=== PATIENT | male | born 1935 | race Caucasian/White ===

== ENCOUNTER 2017-07-23 16:05 | Inpatient (IN) ==
[2017-07-23 20:17] LABS: Alanine Aminotransferase 16 U/L (16-61); Albumin 3.2 G/DL (3.4-5.0); Alkaline Phosphatase 26 U/L (45-117); Aspartate Amino Transferase 11 U/L (0-37); Bilirubin,Total < 0.39 MG/DL (0.2-1.0); Blood Urea Nitrogen 24 MG/DL (7-18); Glucose 136 MG/DL (74-106); Osmolality,Calculated 284.4 MOS/KG (273-304); Potassium 4.2 MMOL/L (3.5-5.1); Sodium 140 MMOL/L (136-145); Total Protein 6.7 G/DL (6.4-8.3)
[2017-07-26 08:10] VITALS: BP 123/78
== END 2017-07-26 11:30 | disposition home or self-care (01) | DRG 309 ==
LOC: N.TELEN 16:50 → INTOOBSV 16:50
PROVIDERS: ADMIT Internal Medicine Cardiovascular Disease; ATTEND Internal Medicine Cardiovascular Disease

== ENCOUNTER 2017-08-22 05:57 | Inpatient (IN) ==
[2017-08-16 11:41] LABS: Basophils # 0.1 10*3/uL (0.0-0.2); Basophils % 0.8 % (0.0-0.8); Eosinophils # 0.5 10*3/uL (0.0-0.87); Eosinophils % 5.4 % (0.00-10.9); Hemoglobin 11.1 GM/DL (14.0-18.0); Immature Granulocytes % 0.4 %; Immature Granulocytes Absolute 0.04 #; Lymphocytes # 2.1 10*3/uL (1.4-4.0); Lymphocytes % 22.5 % (21.2-54.2); Mean Corpuscular HGB Conc 30.8 GM/DL (32-36); Mean Corpuscular Hemoglobin 27 PG (27-34); Mean Corpuscular Volume 86.5 FL (87-102); Mean Platelet Volume 11.5 FL (9.6-12.0); Monocytes # 1.1 10*3/uL (0.11-0.8); Monocytes % 11.7 % (1.7-12.7); Neutrophils # 5.4 10*3/uL (1.4-7.4); Neutrophils % 59.2 % (38.7-73.9); Platelet Count 354 T/CUMM (130-400); Red Blood Count 4.16 MC/CUMM (3.8-5.5); Red Cell Distribution Width 14.9 % (9.3-17.3); White Blood Count 9.2 T/CUMM (4-12)
[2017-08-16 12:00] LABS: Calcium 9.1 MG/DL (8.5-10.1); Osmolality,Calculated 283.3 MOS/KG (273-304); Potassium 4.5 MMOL/L (3.5-5.1)
[~2017-08-22 05:57] MED LIST: ALBUTEROL 2.5 MG/3 ML NEB RESP TX ONE; LACTATED RINGERS 1,000 ML IV SCH; ONDANSETRON 4 MG/2 ML VIAL IV ONE; ceFAZolin 1,000 MG VIAL ONE; ceFAZolin 1,000 MG in SYRINGE 1 EACH IV ONE
[2017-08-22] MEDS ORDERED: ceFAZolin 1,000 MG VIAL ONE (05:58)
[2017-08-22] MEDS ORDERED: ceFAZolin 1,000 MG in SYRINGE 1 EACH IV ONE (06:00)
[2017-08-22] MEDS ORDERED: BACITRACIN 50,000 UNIT VIAL ONE (06:22)
[2017-08-22] MEDS ORDERED: FAMOTIDINE 20 MG TABLET PO ONE (06:51)
[2017-08-22] MEDS ORDERED: ALBUTEROL/IPRATROPIUM 3 ML NEB RESP TX ONE (06:51)
[2017-08-22] MEDS ORDERED: DIAZEPAM 5 MG TABLET ONE (07:00)
[2017-08-22] MEDS ORDERED: LACTATED RINGERS 1,000 ML IV SCH (07:00)
[2017-08-22] MEDS ORDERED: DIAZEPAM 5 MG TABLET PO STA (07:01)
[2017-08-22] MEDS ORDERED: SEVOFLURANE 1 UNIT/15 MINUTE INH ONE (09:47)
[2017-08-22] MEDS ORDERED: PROPOFOL 200 MG/20 ML VIAL IV ONE (09:47)
[2017-08-22] MEDS ORDERED: fentaNYL 100 MCG/2 ML VIAL ONE (09:48)
[2017-08-22] MEDS ORDERED: ACETAMINOPHEN 1,000 MG/100 ML VIAL IV ONE (09:48)
[2017-08-22] MEDS ORDERED: GLYCOPYRROLATE 0.4 MG/2 ML VIAL ONE (09:48)
[2017-08-22] MEDS ORDERED: LACTATED RINGERS 2,000 ML IV ONE (09:49)
[2017-08-22] MEDS ORDERED: PHENYLEPHRINE 1 MG/10 ML SYRINGE IV ONE (09:49)
[2017-08-22] MEDS ORDERED: ROCURONIUM 100 MG/10 ML VIAL IV ONE (09:49)
[2017-08-22 09:55] LABS: Apearance,Urine CLEAR (Clear); Bilirubin,Urine Negative (Negative); Blood, Urine Negative (Negative); Glucose,Urine (UA) Negative (Negative); Ketones,Urine Negative (Negative); Mucus,Urine Occasional /LPF (Occasional); Nitrite,Urine Negative (Negative); Protein,Urine Negative; RBC,Urine <1 /HPF (0-4); Squamous Epithelial Cell,Urine Occasional /HPF (0-10); Urine Color Yellow (Yellow); Urine Specific Gravity 1.009 (1.001-1.035); Urine Urobilinogen < 2.0 EU/DL (0.2-1.0); WBC,Urine <1 /HPF (0-6)
[2017-08-22] MEDS ORDERED: MORPHINE 10 MG/1 ML VIAL ONE (10:03)
[2017-08-22] MEDS ORDERED: ONDANSETRON 4 MG/2 ML VIAL ONE (10:03)
[2017-08-22] MEDS: MORPHINE 10 MG/1 ML VIAL IV PRN ×3 (10:05→10:25)
[2017-08-22] MEDS ORDERED: ONDANSETRON 4 MG/2 ML VIAL IV PRN (10:09)
[2017-08-22] MEDS: LACTATED RINGERS 1,000 ML IV SCH ×2 (11:00→21:17)
[2017-08-22] MEDS: MORPHINE 4 MG/1 ML VIAL IV PRN ×3 (11:35→21:15)
[2017-08-22] MEDS: ONDANSETRON 4 MG/2 ML VIAL IV PRN ×2 (11:35→21:16)
[2017-08-22] MEDS: KETOROLAC 30 MG/1 ML VIAL IV PRN (15:51)
[2017-08-22] MEDS ORDERED: hydrALAZINE 20 MG/1 ML VIAL IV PRN (18:26)
[2017-08-23] MEDS: KETOROLAC 30 MG/1 ML VIAL IV PRN ×4 (00:37→20:30)
[2017-08-23 05:32] LABS: Basophils % 0.2 % (0.0-0.8); Hematocrit 32.8 VOL% (42.0-52.0); Hemoglobin 10.6 GM/DL (14.0-18.0); Immature Granulocytes % 0.5 %; Immature Granulocytes Absolute 0.11 #; Lymphocytes # 1.7 10*3/uL (1.4-4.0); Lymphocytes % 7.8 % (21.2-54.2); Mean Corpuscular HGB Conc 32.3 GM/DL (32-36); Mean Corpuscular Hemoglobin 27 PG (27-34); Mean Corpuscular Volume 83.9 FL (87-102); Mean Platelet Volume 12.2 FL (9.6-12.0); Monocytes # 1.5 10*3/uL (0.11-0.8); Monocytes % 6.8 % (1.7-12.7); NRBC # 0.02 10*3/uL; Neutrophils # 18.2 10*3/uL (1.4-7.4); Neutrophils % 84.7 % (38.7-73.9); Platelet Count 268 T/CUMM (130-400); Red Blood Count 3.91 MC/CUMM (3.8-5.5); Red Cell Distribution Width 16.6 % (9.3-17.3); White Blood Count 21.5 T/CUMM (4-12)
[2017-08-23 06:06] LABS: Calcium 8.1 MG/DL (8.5-10.1); Hypochromasia 1+; Lymphocytes 6 % (20-55); Ovalocytes Slight; Platelet Estimate Adequate; Potassium 4.4 MMOL/L (3.5-5.1); Segmented Neutrophils 92 % (50-85); Total Cells Counted 100; Total Protein 6.6 G/DL (6.4-8.3)
[2017-08-23] MEDS: LEVOFLOXACIN INJ 250 MG in PREMIX 1 EACH IV SCH (10:09)
[2017-08-23] MEDS: PIPERACILLIN/TAZOBACTAM 3,375 MG in SODIUM CHLORIDE 0.9% 100 ML IV SCH ×2 (10:09→17:53)
[2017-08-23] MEDS: MORPHINE 4 MG/1 ML VIAL IV PRN ×3 (10:09→22:47)
[2017-08-23] MEDS: ONDANSETRON 4 MG/2 ML VIAL IV PRN ×2 (13:14→21:15)
[2017-08-23] MEDS: LACTATED RINGERS 1,000 ML IV SCH ×2 (14:26)
[2017-08-24] MEDS: PIPERACILLIN/TAZOBACTAM 3,375 MG in SODIUM CHLORIDE 0.9% 100 ML IV SCH ×3 (01:01→18:13)
[2017-08-24] MEDS: MORPHINE 4 MG/1 ML VIAL IV PRN (02:58)
[2017-08-24 04:42] LABS: Basophils # 0.1 10*3/uL (0.0-0.2); Basophils % 0.2 % (0.0-0.8); Hematocrit 33.7 VOL% (42.0-52.0); Hemoglobin 10.5 GM/DL (14.0-18.0); Immature Granulocytes % 0.8 %; Immature Granulocytes Absolute 0.19 #; Lymphocytes # 1.1 10*3/uL (1.4-4.0); Lymphocytes % 4.9 % (21.2-54.2); Mean Corpuscular HGB Conc 31.2 GM/DL (32-36); Mean Corpuscular Hemoglobin 27 PG (27-34); Mean Corpuscular Volume 86.6 FL (87-102); Mean Platelet Volume 12.4 FL (9.6-12.0); Monocytes % 4.5 % (1.7-12.7); Neutrophils # 20.3 10*3/uL (1.4-7.4); Neutrophils % 89.6 % (38.7-73.9); Platelet Count 251 T/CUMM (130-400); Red Blood Count 3.89 MC/CUMM (3.8-5.5); White Blood Count 22.7 T/CUMM (4-12)
[2017-08-24 05:18] LABS: Calcium 8.2 MG/DL (8.5-10.1); Osmolality,Calculated 287.4 MOS/KG (273-304); Potassium 4.5 MMOL/L (3.5-5.1)
[2017-08-24 05:41] LABS: Band Neutrophils 16 % (0-10); Lymphocytes 4 % (20-55); Segmented Neutrophils 76 % (50-85); Total Cells Counted 100
[2017-08-24 05:42] LABS: Hypochromasia 1+; Microcytosis 1+; Platelet Estimate Normal
[2017-08-24] MEDS: LACTATED RINGERS 1,000 ML IV SCH ×2 (09:30→22:11)
[2017-08-24] MEDS: KETOROLAC 30 MG/1 ML VIAL IV PRN (09:39)
[2017-08-24] MEDS: LEVOFLOXACIN INJ 250 MG in PREMIX 1 EACH IV SCH (09:42)
[2017-08-24] MEDS: SODIUM CHLORIDE 0.45% 1,000 ML IV SCH (16:13)
[2017-08-24] MEDS ORDERED: ALBUTEROL/IPRATROPIUM 3 ML NEB RESP TX ONE (22:44)
[2017-08-25] MEDS: PIPERACILLIN/TAZOBACTAM 3,375 MG in SODIUM CHLORIDE 0.9% 100 ML IV SCH ×3 (01:52→21:31)
[2017-08-25] MEDS: SODIUM CHLORIDE 0.45% 1,000 ML IV SCH ×4 (01:55→19:42)
[2017-08-25 05:08] LABS: Basophils % 0.2 % (0.0-0.8); Eosinophils # 0.7 10*3/uL (0.0-0.87); Hematocrit 31.6 VOL% (42.0-52.0); Hemoglobin 9.6 GM/DL (14.0-18.0); Immature Granulocytes % 1.2 %; Immature Granulocytes Absolute 0.17 #; Lymphocytes # 1.4 10*3/uL (1.4-4.0); Lymphocytes % 9.9 % (21.2-54.2); Mean Corpuscular HGB Conc 30.4 GM/DL (32-36); Mean Corpuscular Hemoglobin 27 PG (27-34); Mean Corpuscular Volume 87.3 FL (87-102); Mean Platelet Volume 12.5 FL (9.6-12.0); Monocytes # 0.9 10*3/uL (0.11-0.8); Monocytes % 6.3 % (1.7-12.7); Neutrophils # 10.6 10*3/uL (1.4-7.4); Neutrophils % 77.4 % (38.7-73.9); Platelet Count 236 T/CUMM (130-400); Red Blood Count 3.62 MC/CUMM (3.8-5.5); Red Cell Distribution Width 16.9 % (9.3-17.3); White Blood Count 13.6 T/CUMM (4-12)
[2017-08-25 05:34] LABS: Calcium 7.9 MG/DL (8.5-10.1); Osmolality,Calculated 282.1 MOS/KG (273-304); Potassium 3.9 MMOL/L (3.5-5.1)
[2017-08-25 06:02] LABS: Band Neutrophils 10 % (0-10); Eosinophils 1 % (0-10); Hypochromasia 1+; Lymphocytes 12 % (20-55); Microcytosis 1+; Segmented Neutrophils 73 % (50-85); Total Cells Counted 100
[2017-08-25 06:03] LABS: Ovalocytes Slight
[2017-08-25] MEDS: ALBUTEROL/IPRATROPIUM 3 ML NEB RESP TX SCH ×3 (07:03→20:25)
[2017-08-25 07:11] LABS: ABG Base Excess -4.2 MMOL/L (-2.5-2.5); ABG HCO3 20.9 MMOL/L (20-26); ABG Oxygen Saturation 94.2 % (95-100); ABG PCO2 36.3 MM HG (35-48); ABG PH 7.364 (7.35-7.45); ABG PO2 74.1 MM HG (80-95); ABG TCO2 19.1 MMOL/L (23-27)
[2017-08-25] MEDS: LEVOFLOXACIN INJ 250 MG in PREMIX 1 EACH IV SCH (09:40)
[2017-08-25] MEDS ORDERED: LACTULOSE 20 GM/30 ML UDCUP PO PRN (16:06)
[2017-08-25] MEDS ORDERED: BISACODYL 10 MG SUPP RECTAL ONE (16:07)
[2017-08-25] MEDS: MORPHINE 4 MG/1 ML VIAL IV PRN (16:28)
[2017-08-25] MEDS: NEBIVOLOL 5 MG TABLET PO SCH (16:41)
[2017-08-25] MEDS: DOCUSATE SODIUM 100 MG CAPSULE PO SCH (21:31)
[2017-08-26] MEDS: ALBUTEROL/IPRATROPIUM 3 ML NEB RESP TX SCH ×4 (00:29→20:14)
[2017-08-26] MEDS ORDERED: NITROGLYCERIN SL 0.4 MG TABLET SL ONE (02:46)
[2017-08-26] MEDS ORDERED: ASPIRIN 325 MG TABLET ONE ×2 (02:51→02:52)
[2017-08-26] MEDS ORDERED: ASPIRIN CHEW 81 MG TABLET PO ONE ×2 (02:54→02:57)
[2017-08-26] MEDS ORDERED: NITROGLYCERIN SL 0.4 MG TABLET SL PRN (02:57)
[2017-08-26] MEDS ORDERED: MORPHINE 4 MG/1 ML VIAL IV PRN (02:57)
[2017-08-26 03:07] LABS: Basophils # 0.1 10*3/uL (0.0-0.2); Basophils % 0.3 % (0.0-0.8); Eosinophils # 0.9 10*3/uL (0.0-0.87); Eosinophils % 5.9 % (0.00-10.9); Hematocrit 33.3 VOL% (42.0-52.0); Hemoglobin 10.6 GM/DL (14.0-18.0); Immature Granulocytes % 2.5 %; Immature Granulocytes Absolute 0.39 #; Lymphocytes # 1.8 10*3/uL (1.4-4.0); Lymphocytes % 11.6 % (21.2-54.2); Mean Corpuscular HGB Conc 31.8 GM/DL (32-36); Mean Corpuscular Hemoglobin 27 PG (27-34); Mean Corpuscular Volume 84.5 FL (87-102); Mean Platelet Volume 12.1 FL (9.6-12.0); Monocytes # 1.8 10*3/uL (0.11-0.8); Monocytes % 11.8 % (1.7-12.7); Neutrophils # 10.4 10*3/uL (1.4-7.4); Neutrophils % 67.9 % (38.7-73.9); Platelet Count 286 T/CUMM (130-400); Red Blood Count 3.94 MC/CUMM (3.8-5.5); Red Cell Distribution Width 16.8 % (9.3-17.3); White Blood Count 15.3 T/CUMM (4-12)
[2017-08-26 03:39] LABS: Band Neutrophils 2 % (0-10); Eosinophils 6 % (0-10); Lymphocytes 16 % (20-55); Segmented Neutrophils 67 % (50-85)
[2017-08-26 03:40] LABS: Hypochromasia Slight; Polychromasia Few
[2017-08-26 03:41] LABS: Anisocytosis 1+; Giant Platelets Few; Microcytosis 1+; Platelet Estimate Normal
[2017-08-26 03:42] LABS: Total Cells Counted 100
[2017-08-26 03:45] LABS: Calcium 8.2 MG/DL (8.5-10.1); Osmolality,Calculated 277.4 MOS/KG (273-304); Potassium 3.8 MMOL/L (3.5-5.1)
[2017-08-26] MEDS: PIPERACILLIN/TAZOBACTAM 3,375 MG in SODIUM CHLORIDE 0.9% 100 ML IV SCH ×3 (05:02→21:42)
[2017-08-26] MEDS: SODIUM CHLORIDE 0.45% 1,000 ML IV SCH ×3 (05:20→13:17)
[2017-08-26 05:54] LABS: Albumin 1.9 G/DL (3.4-5.0); Bilirubin,Total 1.1 MG/DL (0.2-1.0); Calcium 7.8 MG/DL (8.5-10.1); Osmolality,Calculated 276.5 MOS/KG (273-304); Potassium 3.8 MMOL/L (3.5-5.1); Total Protein 5.9 G/DL (6.4-8.3)
[2017-08-26 05:58] LABS: Troponin I Only 0.075 NG/ML (0.00-0.045)
[2017-08-26] MEDS: LEVOFLOXACIN INJ 250 MG in PREMIX 1 EACH IV SCH (08:57)
[2017-08-26] MEDS: NEBIVOLOL 5 MG TABLET PO SCH (08:57)
[2017-08-26] MEDS: DOCUSATE SODIUM 100 MG CAPSULE PO SCH ×2 (08:57→20:50)
[2017-08-26] MEDS: MORPHINE 4 MG/1 ML VIAL IV PRN ×4 (10:39→21:54)
[2017-08-26 11:27] LABS: Troponin I Only 0.057 NG/ML (0.00-0.045)
[2017-08-26] MEDS ORDERED: FUROSEMIDE 40 MG/4 ML VIAL IV ONE (11:39)
[2017-08-26] MEDS ORDERED: NEOSTIGMINE 10 MG/10 ML VIAL IV ONE ×2 (11:39→13:00)
[2017-08-26] MEDS: MEROPENEM 1,000 MG in SYRINGE 1 EACH IV SCH (12:22)
[2017-08-26] MEDS ORDERED: FLUCONAZOLE 150 MG TABLET PO ONE (15:45)
[2017-08-26] MEDS: NYSTATIN CREAM 15 GM TUBE TOP SCH (21:42)
[2017-08-27] MEDS: ALBUTEROL/IPRATROPIUM 3 ML NEB RESP TX SCH ×4 (00:33→19:20)
[2017-08-27] MEDS: MEROPENEM 1,000 MG in SYRINGE 1 EACH IV SCH ×2 (00:39→12:45)
[2017-08-27] MEDS: MORPHINE 4 MG/1 ML VIAL IV PRN ×3 (00:48→09:00)
[2017-08-27] MEDS: PIPERACILLIN/TAZOBACTAM 3,375 MG in SODIUM CHLORIDE 0.9% 100 ML IV SCH ×3 (05:07→21:40)
[2017-08-27] MEDS: NEBIVOLOL 5 MG TABLET PO SCH (08:53)
[2017-08-27] MEDS: NYSTATIN CREAM 15 GM TUBE TOP SCH ×2 (08:53→21:41)
[2017-08-27] MEDS: DOCUSATE SODIUM 100 MG CAPSULE PO SCH ×2 (08:53→21:41)
[2017-08-27 10:06] LABS: Basophils # 0.1 10*3/uL (0.0-0.2); Basophils % 0.6 % (0.0-0.8); Eosinophils # 0.5 10*3/uL (0.0-0.87); Hematocrit 33.4 VOL% (42.0-52.0); Hemoglobin 10.5 GM/DL (14.0-18.0); Immature Granulocytes % 9.3 %; Immature Granulocytes Absolute 1.17 #; Lymphocytes # 1.6 10*3/uL (1.4-4.0); Lymphocytes % 12.4 % (21.2-54.2); Mean Corpuscular HGB Conc 31.4 GM/DL (32-36); Mean Corpuscular Hemoglobin 26 PG (27-34); Mean Corpuscular Volume 84.1 FL (87-102); Mean Platelet Volume 11.9 FL (9.6-12.0); Monocytes # 2.1 10*3/uL (0.11-0.8); Monocytes % 16.6 % (1.7-12.7); NRBC # 0.02 10*3/uL; Neutrophils # 7.2 10*3/uL (1.4-7.4); Neutrophils % 57.1 % (38.7-73.9); Platelet Count 284 T/CUMM (130-400); Red Blood Count 3.97 MC/CUMM (3.8-5.5); Red Cell Distribution Width 17.3 % (9.3-17.3); White Blood Count 12.5 T/CUMM (4-12)
[2017-08-27 10:20] LABS: Calcium 8.3 MG/DL (8.5-10.1); Osmolality,Calculated 279.1 MOS/KG (273-304); Potassium 3.9 MMOL/L (3.5-5.1)
[2017-08-27 10:27] LABS: Band Neutrophils 8 % (0-10); Eosinophils 4 % (0-10); Lymphocytes 13 % (20-55); Metamyelocytes 1 %; Segmented Neutrophils 54 % (50-85); Total Cells Counted 100
[2017-08-27 10:28] LABS: Hypochromasia 1+; Microcytosis 1+
[2017-08-27 10:29] LABS: Platelet Estimate Normal
[2017-08-27] MEDS: DEXTROSE 5% NACL 0.45% 1,000 ML IV SCH (12:45)
[2017-08-27] MEDS ORDERED: ACETAMINOPHEN INJ 1,000 MG in PREMIX 1 EACH IV SCH (14:30)
[2017-08-27] MEDS: NEOSTIGMINE 10 MG/10 ML VIAL IV SCH ×2 (16:06→21:41)
[2017-08-27] MEDS: FAT EMULSION 20% 250 ML IV SCH (16:06)
[2017-08-27] MEDS ORDERED: DEXTROSE 10% 1,000 ML IV PRN (17:00)
[2017-08-27] MEDS: MULTIVITAMIN INJ 10 ML in AMINO ACIDS/DEXT/LYTES 4.25-5% 2,000 ML IV SCH (18:38)
[2017-08-27] MEDS: KETOROLAC 30 MG/1 ML VIAL IV PRN (21:40)
[2017-08-28] MEDS: ALBUTEROL/IPRATROPIUM 3 ML NEB RESP TX SCH ×4 (00:25→19:51)
[2017-08-28] MEDS: MEROPENEM 1,000 MG in SYRINGE 1 EACH IV SCH ×2 (01:47→12:56)
[2017-08-28] MEDS: NEOSTIGMINE 10 MG/10 ML VIAL IV SCH ×4 (01:47→22:08)
[2017-08-28] MEDS: KETOROLAC 30 MG/1 ML VIAL IV PRN ×2 (03:35→15:06)
[2017-08-28] MEDS: PIPERACILLIN/TAZOBACTAM 3,375 MG in SODIUM CHLORIDE 0.9% 100 ML IV SCH ×3 (04:11→22:07)
[2017-08-28 05:30] LABS: Basophils # 0.1 10*3/uL (0.0-0.2); Basophils % 0.5 % (0.0-0.8); Eosinophils # 0.3 10*3/uL (0.0-0.87); Eosinophils % 1.7 % (0.00-10.9); Hematocrit 29.8 VOL% (42.0-52.0); Hemoglobin 9.4 GM/DL (14.0-18.0); Immature Granulocytes % 13.9 %; Lymphocytes # 1.2 10*3/uL (1.4-4.0); Lymphocytes % 7.7 % (21.2-54.2); Mean Corpuscular HGB Conc 31.5 GM/DL (32-36); Mean Corpuscular Hemoglobin 26 PG (27-34); Mean Platelet Volume 11.5 FL (9.6-12.0); Monocytes # 1.6 10*3/uL (0.11-0.8); Monocytes % 10.7 % (1.7-12.7); NRBC # 0.03 10*3/uL; Neutrophils # 9.9 10*3/uL (1.4-7.4); Neutrophils % 65.5 % (38.7-73.9); Platelet Count 315 T/CUMM (130-400); Red Blood Count 3.59 MC/CUMM (3.8-5.5); Red Cell Distribution Width 17.2 % (9.3-17.3); White Blood Count 15.1 T/CUMM (4-12)
[2017-08-28] MEDS: LEVOTHYROXINE 100 MCG TABLET PO SCH (05:50)
[2017-08-28 05:51] LABS: Calcium 7.9 MG/DL (8.5-10.1); Osmolality,Calculated 276.4 MOS/KG (273-304); Potassium 3.5 MMOL/L (3.5-5.1)
[2017-08-28 05:54] LABS: Atypical Lymphocytes Few; Band Neutrophils 17 % (0-10); Eosinophils 1 % (0-10); Lymphocytes 16 % (20-55); Metamyelocytes 1 %; Myelocytes 1 %; Segmented Neutrophils 54 % (50-85); Total Cells Counted 100
[2017-08-28 05:55] LABS: Hypochromasia 1+; Microcytosis 1+; Platelet Estimate Normal
[2017-08-28 06:05] LABS: Prealbumin 3.2 MG/DL (20-40)
[2017-08-28] MEDS ORDERED: FUROSEMIDE 40 MG/4 ML VIAL IV ONE (07:33)
[2017-08-28] MEDS: NEBIVOLOL 5 MG TABLET PO SCH (10:15)
[2017-08-28] MEDS: DOCUSATE SODIUM 100 MG CAPSULE PO SCH ×2 (10:16→22:08)
[2017-08-28] MEDS: clonazePAM 0.5 MG TABLET PO PRN (10:17)
[2017-08-28] MEDS: CITALOPRAM 20 MG TABLET PO SCH (10:17)
[2017-08-28] MEDS: TAMSULOSIN 0.4 MG CAPSULE PO SCH (10:17)
[2017-08-28] MEDS ORDERED: TEMAZEPAM 15 MG CAPSULE PO PRN (10:41)
[2017-08-28] MEDS: NYSTATIN CREAM 15 GM TUBE TOP SCH ×2 (11:18→22:08)
[2017-08-28] MEDS ORDERED: POTASSIUM CHLORIDE 20 MEQ/15 ML UDCUP PO ONE (12:02)
[2017-08-28] MEDS: DEXTROSE 5% NACL 0.45% 1,000 ML IV SCH (14:23)
[2017-08-28] MEDS: FAT EMULSION 20% 250 ML IV SCH (15:14)
[2017-08-28] MEDS: MULTIVITAMIN INJ 10 ML in AMINO ACIDS/DEXT/LYTES 4.25-5% 2,000 ML IV SCH (17:25)
[2017-08-28] MEDS ORDERED: DEXTROSE 5% NACL 0.45% 1,000 ML IV SCH (17:45)
[2017-08-29] MEDS: MEROPENEM 1,000 MG in SYRINGE 1 EACH IV SCH ×2 (00:56→12:19)
[2017-08-29] MEDS: ALBUTEROL/IPRATROPIUM 3 ML NEB RESP TX SCH ×4 (01:09→19:00)
[2017-08-29] MEDS: NEOSTIGMINE 10 MG/10 ML VIAL IV SCH ×2 (03:16→08:39)
[2017-08-29] MEDS: DEXTROSE 5% NACL 0.45% 1,000 ML IV SCH ×2 (04:49→05:31)
[2017-08-29] MEDS: PIPERACILLIN/TAZOBACTAM 3,375 MG in SODIUM CHLORIDE 0.9% 100 ML IV SCH ×3 (05:30→22:45)
[2017-08-29] MEDS: LEVOTHYROXINE 100 MCG TABLET PO SCH (05:31)
[2017-08-29 06:59] LABS: Basophils # 0.1 10*3/uL (0.0-0.2); Basophils % 0.2 % (0.0-0.8); Eosinophils # 0.5 10*3/uL (0.0-0.87); Eosinophils % 1.7 % (0.00-10.9); Hematocrit 31.3 VOL% (42.0-52.0); Immature Granulocytes Absolute 4.09 #; Lymphocytes # 1.5 10*3/uL (1.4-4.0); Lymphocytes % 5.2 % (21.2-54.2); Mean Corpuscular HGB Conc 31.9 GM/DL (32-36); Mean Corpuscular Hemoglobin 27 PG (27-34); Mean Corpuscular Volume 83.9 FL (87-102); Monocytes # 1.8 10*3/uL (0.11-0.8); Monocytes % 6.3 % (1.7-12.7); NRBC # 0.11 10*3/uL; Neutrophils # 21.2 10*3/uL (1.4-7.4); Neutrophils % 72.6 % (38.7-73.9); Platelet Count 307 T/CUMM (130-400); Red Blood Count 3.73 MC/CUMM (3.8-5.5); White Blood Count 29.2 T/CUMM (4-12)
[2017-08-29 07:19] LABS: Calcium 8.3 MG/DL (8.5-10.1); Osmolality,Calculated 278.5 MOS/KG (273-304); Potassium 3.7 MMOL/L (3.5-5.1)
[2017-08-29 07:22] LABS: Band Neutrophils 34 % (0-10); Hypochromasia 1+; Lymphocytes 5 % (20-55); Macrocytosis 1+; Metamyelocytes 2 %; Myelocytes 6 %; Nucleated Red Blood Cells 1 (0-5); Platelet Estimate Adequate; Polychromasia Slight; Segmented Neutrophils 48 % (50-85); Total Cells Counted 100
[2017-08-29] MEDS: KETOROLAC 30 MG/1 ML VIAL IV PRN (08:37)
[2017-08-29] MEDS: NEBIVOLOL 10 MG TABLET PO SCH (08:37)
[2017-08-29] MEDS: DOCUSATE SODIUM 100 MG CAPSULE PO SCH ×2 (08:37→22:35)
[2017-08-29] MEDS: CITALOPRAM 20 MG TABLET PO SCH (08:38)
[2017-08-29] MEDS: TAMSULOSIN 0.4 MG CAPSULE PO SCH (08:46)
[2017-08-29] MEDS: NYSTATIN CREAM 15 GM TUBE TOP SCH ×2 (08:46→22:46)
[2017-08-29] MEDS: CLINDAMYCIN INJ 300 MG in PREMIX 1 EACH IV SCH ×2 (12:19→18:24)
[2017-08-29] MEDS: clonazePAM 0.5 MG TABLET PO PRN (16:59)
[2017-08-29] MEDS: FAT EMULSION 20% 250 ML IV SCH (16:59)
[2017-08-29] MEDS: MULTIVITAMIN INJ 10 ML in AMINO ACIDS/DEXT/LYTES 4.25-5% 2,000 ML IV SCH (18:22)
[2017-08-29] MEDS ORDERED: LACTATED RINGERS 500 ML IV ONE (19:00)
[2017-08-29 20:58] LABS: ABG Base Excess -5.2 MMOL/L (-2.5-2.5); ABG HCO3 20.1 MMOL/L (20-26); ABG Oxygen Saturation 97.3 % (95-100); ABG PCO2 33.2 MM HG (35-48); ABG PH 7.373 (7.35-7.45); ABG PO2 99.4 MM HG (80-95); ABG TCO2 17.9 MMOL/L (23-27)
[2017-08-30] MEDS: ALBUTEROL/IPRATROPIUM 3 ML NEB RESP TX SCH ×5 (00:32→19:26)
[2017-08-30] MEDS: MEROPENEM 1,000 MG in SYRINGE 1 EACH IV SCH ×3 (03:55→23:30)
[2017-08-30] MEDS: CLINDAMYCIN INJ 300 MG in PREMIX 1 EACH IV SCH ×3 (04:53→22:19)
[2017-08-30 06:23] LABS: Basophils # 0.1 10*3/uL (0.0-0.2); Basophils % 0.1 % (0.0-0.8); Eosinophils # 0.8 10*3/uL (0.0-0.87); Eosinophils % 2.4 % (0.00-10.9); Hematocrit 31.8 VOL% (42.0-52.0); Hemoglobin 10.5 GM/DL (14.0-18.0); Immature Granulocytes % 15.6 %; Immature Granulocytes Absolute 5.33 #; Lymphocytes # 1.9 10*3/uL (1.4-4.0); Lymphocytes % 5.7 % (21.2-54.2); Mean Corpuscular Hemoglobin 27 PG (27-34); Mean Corpuscular Volume 81.7 FL (87-102); Mean Platelet Volume 12.1 FL (9.6-12.0); Monocytes # 2.2 10*3/uL (0.11-0.8); Monocytes % 6.5 % (1.7-12.7); NRBC # 0.14 10*3/uL; Neutrophils # 23.8 10*3/uL (1.4-7.4); Neutrophils % 69.7 % (38.7-73.9); Platelet Count 330 T/CUMM (130-400); Red Blood Count 3.89 MC/CUMM (3.8-5.5); White Blood Count 34.1 T/CUMM (4-12)
[2017-08-30] MEDS: LEVOTHYROXINE 100 MCG TABLET PO SCH (07:12)
[2017-08-30] MEDS: PIPERACILLIN/TAZOBACTAM 3,375 MG in SODIUM CHLORIDE 0.9% 100 ML IV SCH ×3 (07:14→23:05)
[2017-08-30 07:31] LABS: Band Neutrophils 4 % (0-10); Eosinophils 2 % (0-10); Lymphocytes 13 % (20-55); Nucleated Red Blood Cells 1 (0-5); Platelet Estimate Normal; Segmented Neutrophils 76 % (50-85); Total Cells Counted 100
[2017-08-30 07:34] LABS: Calcium 8.4 MG/DL (8.5-10.1); Osmolality,Calculated 278.7 MOS/KG (273-304); Potassium 3.6 MMOL/L (3.5-5.1)
[2017-08-30] MEDS: NEBIVOLOL 10 MG TABLET PO SCH (09:24)
[2017-08-30] MEDS: TAMSULOSIN 0.4 MG CAPSULE PO SCH (09:25)
[2017-08-30] MEDS: CITALOPRAM 20 MG TABLET PO SCH (09:25)
[2017-08-30] MEDS: DOCUSATE SODIUM 100 MG CAPSULE PO SCH ×2 (09:26→22:16)
[2017-08-30] MEDS: DEXTROSE 5% NACL 0.45% 1,000 ML IV SCH (10:08)
[2017-08-30] MEDS: NYSTATIN CREAM 15 GM TUBE TOP SCH ×2 (10:15→22:16)
[2017-08-30] MEDS: DEXTROSE 5% NACL 0.9% 1,000 ML IV SCH (10:19)
[2017-08-30 13:01] LABS: Apearance,Urine CLOUDY (Clear); Bacteria,Urine Occasional /HPF (Few); Bilirubin,Urine Negative (Negative); Blood, Urine Large mg/dL (Negative); Glucose,Urine (UA) Negative (Negative); Ketones,Urine Negative (Negative); Mucus,Urine Occasional /LPF (Occasional); Nitrite,Urine Negative (Negative); Protein,Urine 100 MG/DL; RBC,Urine 1095 /HPF (0-4); Squamous Epithelial Cell,Urine Occasional /HPF (0-10); Urine Specific Gravity 1.013 (1.001-1.035); Urine Urobilinogen < 2.0 EU/DL (0.2-1.0); WBC,Urine 94 /HPF (0-6)
[2017-08-30 13:03] LABS: Urine Color Reddish-Yellow (Yellow)
[2017-08-30] MEDS ORDERED: LORazepam 2 MG/1 ML VIAL IV PRN (14:18)
[2017-08-30 14:46] LABS: ABG Base Excess -5.2 MMOL/L (-2.5-2.5); ABG HCO3 20.1 MMOL/L (20-26); ABG Oxygen Saturation 96.9 % (95-100); ABG PCO2 29.3 MM HG (35-48); ABG PO2 90.7 MM HG (80-95); ABG TCO2 17.1 MMOL/L (23-27)
[2017-08-30] MEDS: FAT EMULSION 20% 250 ML IV SCH (15:48)
[2017-08-30] MEDS: MULTIVITAMIN INJ 10 ML in AMINO ACIDS/DEXT/LYTES 4.25-5% 2,000 ML IV SCH (18:54)
[2017-08-30 20:40] LABS: Troponin I Only 0.063 NG/ML (0.00-0.045)
[2017-08-30] MEDS: FLUCONAZOLE INJ 200 MG in PREMIX 1 EACH IV SCH (22:15)
[2017-08-30] MEDS: ALBUTEROL/IPRATROPIUM 3 ML NEB RESP TX PRN (23:11)
[2017-08-31 05:40] LABS: Basophils # 0.1 10*3/uL (0.0-0.2); Basophils % 0.5 % (0.0-0.8); Eosinophils # 0.4 10*3/uL (0.0-0.87); Eosinophils % 1.9 % (0.00-10.9); Hematocrit 26.3 VOL% (42.0-52.0); Hemoglobin 8.5 GM/DL (14.0-18.0); Immature Granulocytes % 14.6 %; Lymphocytes # 1.9 10*3/uL (1.4-4.0); Lymphocytes % 8.4 % (21.2-54.2); Mean Corpuscular HGB Conc 32.3 GM/DL (32-36); Mean Corpuscular Hemoglobin 26 PG (27-34); Mean Corpuscular Volume 81.4 FL (87-102); Mean Platelet Volume 11.2 FL (9.6-12.0); Monocytes # 2.2 10*3/uL (0.11-0.8); Monocytes % 9.8 % (1.7-12.7); NRBC # 0.04 10*3/uL; Neutrophils # 14.7 10*3/uL (1.4-7.4); Neutrophils % 64.8 % (38.7-73.9); Platelet Count 385 T/CUMM (130-400); Red Blood Count 3.23 MC/CUMM (3.8-5.5); Red Cell Distribution Width 17.7 % (9.3-17.3); White Blood Count 22.7 T/CUMM (4-12)
[2017-08-31] MEDS: CLINDAMYCIN INJ 300 MG in PREMIX 1 EACH IV SCH ×3 (05:55→22:10)
[2017-08-31] MEDS: PIPERACILLIN/TAZOBACTAM 3,375 MG in SODIUM CHLORIDE 0.9% 100 ML IV SCH ×3 (05:55→23:20)
[2017-08-31 05:59] LABS: Albumin 1.5 G/DL (3.4-5.0); Bilirubin,Total 0.4 MG/DL (0.2-1.0); Osmolality,Calculated 280.7 MOS/KG (273-304); Total Protein 6.3 G/DL (6.4-8.3)
[2017-08-31] MEDS: ALBUTEROL/IPRATROPIUM 3 ML NEB RESP TX SCH ×4 (07:17→19:17)
[2017-08-31] MEDS: LEVOTHYROXINE 100 MCG TABLET PO SCH (07:18)
[2017-08-31] MEDS: DEXTROSE 5% NACL 0.9% 1,000 ML IV SCH (07:18)
[2017-08-31 07:54] LABS: Band Neutrophils 1 % (0-10); Eosinophils 1 % (0-10); Hypochromasia 2+; Lymphocytes 10 % (20-55); Myelocytes 6 %; Nucleated Red Blood Cells 1 (0-5); Platelet Estimate Adequate; Segmented Neutrophils 74 % (50-85); Total Cells Counted 100
[2017-08-31] MEDS ORDERED: SODIUM CHLORIDE 0.9% 1,000 ML IV PRN (11:02)
[2017-08-31 11:29] LABS: Basophils # 0.1 10*3/uL (0.0-0.2); Basophils % 0.4 % (0.0-0.8); Eosinophils # 0.4 10*3/uL (0.0-0.87); Eosinophils % 2.2 % (0.00-10.9); Hematocrit 24.4 VOL% (42.0-52.0); Immature Granulocytes % 18.5 %; Immature Granulocytes Absolute 3.66 #; Lymphocytes # 2.9 10*3/uL (1.4-4.0); Lymphocytes % 14.4 % (21.2-54.2); Mean Corpuscular HGB Conc 32.8 GM/DL (32-36); Mean Corpuscular Hemoglobin 27 PG (27-34); Mean Corpuscular Volume 81.1 FL (87-102); Mean Platelet Volume 11.6 FL (9.6-12.0); Monocytes # 2.5 10*3/uL (0.11-0.8); Monocytes % 12.5 % (1.7-12.7); NRBC # 0.03 10*3/uL; Neutrophils # 10.3 10*3/uL (1.4-7.4); Platelet Count 367 T/CUMM (130-400); Red Blood Count 3.01 MC/CUMM (3.8-5.5); Red Cell Distribution Width 18.1 % (9.3-17.3); White Blood Count 19.8 T/CUMM (4-12)
[2017-08-31] MEDS ORDERED: PHENYLEPHRINE DRIP 40 MG/250 ML PREMIX IV PRN (13:06)
[2017-08-31] MEDS ORDERED: LIDOCAINE 2% TOP JELLY 5 ML TUBE TOP ONE (13:12)
[2017-08-31] MEDS ORDERED: SEVOFLURANE 1 UNIT/15 MINUTE INH ONE (13:12)
[2017-08-31] MEDS ORDERED: PHENYLEPHRINE 1 MG/10 ML SYRINGE IV ONE (13:13)
[2017-08-31] MEDS ORDERED: ETOMIDATE 40 MG/20 ML VIAL IV ONE (13:13)
[2017-08-31] MEDS ORDERED: PHENYLEPHRINE 10 MG/1 ML VIAL IV ONE ×2 (13:13)
[2017-08-31] MEDS ORDERED: PHENYLEPHRINE 0.5% NASAL SPRAY 15 ML BOTTLE BOTH NARES ONE (13:13)
[2017-08-31] MEDS ORDERED: fentaNYL 100 MCG/2 ML VIAL ONE (13:13)
[2017-08-31] MEDS ORDERED: ROCURONIUM 100 MG/10 ML VIAL IV ONE (13:14)
[2017-08-31] MEDS ORDERED: SODIUM CHLORIDE 0.9% 250 ML IV ONE (13:14)
[2017-08-31] MEDS ORDERED: SODIUM CHLORIDE 0.9% 1,000 ML IV ONE (13:14)
[2017-08-31] MEDS: PROPOFOL 1,000 MG/100 ML BOTTLE IV SCH ×2 (13:20→22:15)
[2017-08-31 13:40] LABS: ABG Base Excess -8.3 MMOL/L (-2.5-2.5); ABG HCO3 17.7 MMOL/L (20-26); ABG Oxygen Saturation 98.7 % (95-100); ABG PCO2 36.2 MM HG (35-48); ABG PH 7.294 (7.35-7.45); ABG TCO2 16.4 MMOL/L (23-27); Allen Test Positive; Pt O2 Delivery Device Ventilator
[2017-08-31] MEDS: CITALOPRAM 20 MG TABLET PO SCH (15:21)
[2017-08-31] MEDS: NEBIVOLOL 10 MG TABLET PO SCH (15:21)
[2017-08-31] MEDS: DOCUSATE SODIUM 100 MG CAPSULE PO SCH ×2 (15:21→21:30)
[2017-08-31] MEDS: TAMSULOSIN 0.4 MG CAPSULE PO SCH (15:21)
[2017-08-31] MEDS: NYSTATIN CREAM 15 GM TUBE TOP SCH ×2 (15:22→22:10)
[2017-08-31] MEDS: MEROPENEM 1,000 MG in SYRINGE 1 EACH IV SCH (15:23)
[2017-08-31] MEDS: SODIUM CHLORIDE 0.9% 1,000 ML IV SCH (17:38)
[2017-08-31] MEDS: MULTIVITAMIN INJ 10 ML in AMINO ACIDS/DEXT/LYTES 4.25-5% 2,000 ML IV SCH (17:57)
[2017-08-31] MEDS: FAT EMULSION 20% 250 ML IV SCH (17:57)
[2017-08-31] MEDS: MORPHINE 4 MG/1 ML VIAL IV PRN (20:20)
[2017-08-31] MEDS: FLUCONAZOLE INJ 200 MG in PREMIX 1 EACH IV SCH (20:55)
[2017-09-01] MEDS: MEROPENEM 1,000 MG in SYRINGE 1 EACH IV SCH ×2 (00:40→13:13)
[2017-09-01 01:10] LABS: Hematocrit 32.5 VOL% (42.0-52.0); Hemoglobin 10.7 GM/DL (14.0-18.0)
[2017-09-01] MEDS: PROPOFOL 1,000 MG/100 ML BOTTLE IV SCH ×7 (02:10→22:13)
[2017-09-01] MEDS: SODIUM CHLORIDE 0.9% 1,000 ML IV SCH ×3 (04:45→22:07)
[2017-09-01 04:53] LABS: ABG Base Excess -5.9 MMOL/L (-2.5-2.5); ABG HCO3 16.8 MMOL/L (20-26); ABG Oxygen Saturation 98.7 % (95-100); ABG PCO2 25.3 MM HG (35-48); ABG PO2 172.6 MM HG (80-95); ABG TCO2 17.6 MMOL/L (23-27); Allen Test Positive; Pt O2 Delivery Device Ventilator
[2017-09-01] MEDS: CLINDAMYCIN INJ 300 MG in PREMIX 1 EACH IV SCH ×3 (04:54→21:16)
[2017-09-01 05:15] LABS: Basophils # 0.2 10*3/uL (0.0-0.2); Basophils % 0.6 % (0.0-0.8); Eosinophils # 0.1 10*3/uL (0.0-0.87); Eosinophils % 0.3 % (0.00-10.9); Hematocrit 31.7 VOL% (42.0-52.0); Hemoglobin 10.6 GM/DL (14.0-18.0); Immature Granulocytes % 15.3 %; Immature Granulocytes Absolute 4.51 #; Lymphocytes # 1.7 10*3/uL (1.4-4.0); Lymphocytes % 5.7 % (21.2-54.2); Mean Corpuscular HGB Conc 33.4 GM/DL (32-36); Mean Corpuscular Hemoglobin 27 PG (27-34); Mean Corpuscular Volume 81.3 FL (87-102); Mean Platelet Volume 11.2 FL (9.6-12.0); Monocytes # 2.1 10*3/uL (0.11-0.8); NRBC # 0.03 10*3/uL; Neutrophils % 71.1 % (38.7-73.9); Platelet Count 405 T/CUMM (130-400); Red Cell Distribution Width 17.5 % (9.3-17.3); White Blood Count 29.5 T/CUMM (4-12)
[2017-09-01 05:36] LABS: Albumin 1.4 G/DL (3.4-5.0); Bilirubin,Total 0.7 MG/DL (0.2-1.0); Calcium 7.7 MG/DL (8.5-10.1); Osmolality,Calculated 280.7 MOS/KG (273-304); Potassium 4.7 MMOL/L (3.5-5.1); Total Protein 5.8 G/DL (6.4-8.3)
[2017-09-01 05:40] LABS: Atypical Lymphocytes Few; Band Neutrophils 3 % (0-10); Lymphocytes 20 % (20-55); Platelet Estimate Normal; Segmented Neutrophils 66 % (50-85); Total Cells Counted 100
[2017-09-01] MEDS: PIPERACILLIN/TAZOBACTAM 3,375 MG in SODIUM CHLORIDE 0.9% 100 ML IV SCH ×3 (05:40→21:16)
[2017-09-01] MEDS: ALBUTEROL/IPRATROPIUM 3 ML NEB RESP TX SCH ×4 (07:03→19:31)
[2017-09-01] MEDS: LEVOTHYROXINE 100 MCG TABLET PO SCH (07:55)
[2017-09-01] MEDS: DOCUSATE SODIUM 100 MG CAPSULE PO SCH ×2 (11:00→21:19)
[2017-09-01] MEDS: NYSTATIN CREAM 15 GM TUBE TOP SCH ×2 (11:00→21:23)
[2017-09-01] MEDS: TAMSULOSIN 0.4 MG CAPSULE PO SCH (11:00)
[2017-09-01] MEDS: CITALOPRAM 20 MG TABLET PO SCH (11:00)
[2017-09-01] MEDS: NEBIVOLOL 10 MG TABLET PO SCH (11:00)
[2017-09-01] MEDS: FAT EMULSION 20% 250 ML IV SCH (17:25)
[2017-09-01] MEDS: MULTIVITAMIN INJ 10 ML in AMINO ACIDS/DEXT/LYTES 4.25-5% 2,000 ML IV SCH (17:27)
[2017-09-01] MEDS ORDERED: VECURONIUM 10 MG VIAL IV ONE ×2 (20:27→20:31)
[2017-09-01] MEDS: FLUCONAZOLE INJ 200 MG in PREMIX 1 EACH IV SCH (21:15)
[2017-09-01] MEDS: MORPHINE 4 MG/1 ML VIAL IV PRN (23:14)
[2017-09-02] MEDS: MEROPENEM 1,000 MG in SYRINGE 1 EACH IV SCH ×3 (00:16→20:13)
[2017-09-02] MEDS: PROPOFOL 1,000 MG/100 ML BOTTLE IV SCH ×4 (03:46→23:10)
[2017-09-02] MEDS: SODIUM CHLORIDE 0.9% 1,000 ML IV SCH ×4 (05:24→19:51)
[2017-09-02 05:39] LABS: Basophils # 0.1 10*3/uL (0.0-0.2); Basophils % 0.4 % (0.0-0.8); Eosinophils # 0.3 10*3/uL (0.0-0.87); Eosinophils % 1.2 % (0.00-10.9); Hematocrit 27.9 VOL% (42.0-52.0); Hemoglobin 9.2 GM/DL (14.0-18.0); Immature Granulocytes % 20.3 %; Immature Granulocytes Absolute 5.34 #; Lymphocytes # 1.7 10*3/uL (1.4-4.0); Lymphocytes % 6.3 % (21.2-54.2); Mean Corpuscular Hemoglobin 27 PG (27-34); Mean Platelet Volume 10.9 FL (9.6-12.0); Monocytes # 2.5 10*3/uL (0.11-0.8); Monocytes % 9.6 % (1.7-12.7); NRBC # 0.02 10*3/uL; Neutrophils # 16.3 10*3/uL (1.4-7.4); Neutrophils % 62.2 % (38.7-73.9); Platelet Count 369 T/CUMM (130-400); Red Blood Count 3.36 MC/CUMM (3.8-5.5); Red Cell Distribution Width 17.7 % (9.3-17.3); White Blood Count 26.3 T/CUMM (4-12)
[2017-09-02] MEDS: CLINDAMYCIN INJ 300 MG in PREMIX 1 EACH IV SCH (05:52)
[2017-09-02] MEDS: LEVOTHYROXINE 100 MCG TABLET PO SCH (05:52)
[2017-09-02] MEDS: PIPERACILLIN/TAZOBACTAM 3,375 MG in SODIUM CHLORIDE 0.9% 100 ML IV SCH (05:52)
[2017-09-02 05:57] LABS: Alanine Aminotransferase 19 U/L (16-61); Albumin 1.5 G/DL (3.4-5.0); Alkaline Phosphatase 42 U/L (45-117); Aspartate Amino Transferase 59 U/L (0-37); Bilirubin,Total < 0.39 MG/DL (0.2-1.0); Blood Urea Nitrogen 46 MG/DL (7-18); Calcium 7.1 MG/DL (8.5-10.1); Glucose 150 MG/DL (74-106); Osmolality,Calculated 284.1 MOS/KG (273-304); Potassium 4.8 MMOL/L (3.5-5.1); Sodium 135 MMOL/L (136-145); Total Protein 4.8 G/DL (6.4-8.3)
[2017-09-02 05:59] LABS: Band Neutrophils 5 % (0-10); Eosinophils 1 % (0-10); Giant Platelets Few; Hypochromasia 1+; Lymphocytes 9 % (20-55); Myelocytes 2 %; Ovalocytes Slight; Platelet Estimate Adequate; Segmented Neutrophils 71 % (50-85); Total Cells Counted 100
[2017-09-02] MEDS: ALBUTEROL/IPRATROPIUM 3 ML NEB RESP TX SCH ×4 (07:12→19:41)
[2017-09-02] MEDS: DOCUSATE SODIUM 100 MG CAPSULE PO SCH (08:10)
[2017-09-02] MEDS: NEBIVOLOL 10 MG TABLET PO SCH (08:10)
[2017-09-02] MEDS: TAMSULOSIN 0.4 MG CAPSULE PO SCH (08:10)
[2017-09-02] MEDS: CITALOPRAM 20 MG TABLET PO SCH (08:10)
[2017-09-02] MEDS: NYSTATIN CREAM 15 GM TUBE TOP SCH ×2 (08:53→20:14)
[2017-09-02] MEDS: MORPHINE 4 MG/1 ML VIAL IV PRN ×2 (14:10→20:14)
[2017-09-02] MEDS: VANCOMYCIN INJ 2,000 MG in SODIUM CHLORIDE 0.9% 500 ML IV SCH (14:21)
[2017-09-02] MEDS ORDERED: GLUCAGON 1 MG VIAL IM PRN (15:16)
[2017-09-02] MEDS ORDERED: DEXTROSE 50% 25 GM/50 ML VIAL IV PRN (15:16)
[2017-09-02] MEDS: MULTIVITAMIN INJ 10 ML in AMINO ACIDS/DEXT/LYTES 4.25-5% 2,000 ML IV SCH (16:46)
[2017-09-02] MEDS: FAT EMULSION 20% 250 ML IV SCH (16:46)
[2017-09-02] MEDS: DOCUSATE SODIUM 100 MG/10 ML UDCUP PO SCH (20:14)
[2017-09-03] MEDS: VANCOMYCIN INJ 2,000 MG in SODIUM CHLORIDE 0.9% 500 ML IV SCH ×2 (00:07→12:57)
[2017-09-03] MEDS: MORPHINE 4 MG/1 ML VIAL IV PRN ×3 (00:07→19:55)
[2017-09-03] MEDS: SODIUM CHLORIDE 0.9% 1,000 ML IV SCH ×5 (02:19→23:52)
[2017-09-03] MEDS: PROPOFOL 1,000 MG/100 ML BOTTLE IV SCH ×4 (03:15→19:19)
[2017-09-03] MEDS: MEROPENEM 1,000 MG in SYRINGE 1 EACH IV SCH ×3 (03:16→21:32)
[2017-09-03 03:55] LABS: ABG Base Excess -4.8 MMOL/L (-2.5-2.5); ABG HCO3 20.5 MMOL/L (20-26); ABG Oxygen Saturation 98.4 % (95-100); ABG PCO2 32.3 MM HG (35-48); ABG PH 7.386 (7.35-7.45); ABG TCO2 17.2 MMOL/L (23-27); Allen Test Positive; Pt O2 Delivery Device Ventilator
[2017-09-03] MEDS: LEVOTHYROXINE 100 MCG TABLET PO SCH (05:34)
[2017-09-03 06:27] LABS: Calcium 7.3 MG/DL (8.5-10.1); Osmolality,Calculated 281.8 MOS/KG (273-304); Potassium 5.2 MMOL/L (3.5-5.1)
[2017-09-03] MEDS: ALBUTEROL/IPRATROPIUM 3 ML NEB RESP TX SCH ×4 (07:12→20:12)
[2017-09-03] MEDS: TAMSULOSIN 0.4 MG CAPSULE PO SCH (09:24)
[2017-09-03] MEDS: CITALOPRAM 20 MG TABLET PO SCH (09:24)
[2017-09-03] MEDS: MONTELUKAST 10 MG TABLET PO SCH (09:24)
[2017-09-03] MEDS: NEBIVOLOL 10 MG TABLET PO SCH (09:24)
[2017-09-03] MEDS: DOCUSATE SODIUM 100 MG/10 ML UDCUP PO SCH ×2 (09:25→21:33)
[2017-09-03] MEDS: NYSTATIN CREAM 15 GM TUBE TOP SCH ×2 (09:25→21:33)
[2017-09-03] MEDS ORDERED: SODIUM CHLORIDE 0.9% 1,000 ML IV PRN (11:28)
[2017-09-03] MEDS: MICAFUNGIN 100 MG in SODIUM CHLORIDE 0.9% 100 ML IV SCH (12:57)
[2017-09-03] MEDS: INSULIN REGULAR 100 UNIT/ML SUBCUT SCH ×3 (16:54→23:53)
[2017-09-03] MEDS ORDERED: TRACE ELEMENTS IV SCH (17:00)
[2017-09-03] MEDS ORDERED: [UNRECOGNIZED DRUG - OTHER] IV SCH (17:00)
[2017-09-03] MEDS ORDERED: MULTIVITAMIN IV SCH (17:00)
[2017-09-04] MEDS: PROPOFOL 1,000 MG/100 ML BOTTLE IV SCH ×5 (00:04→20:20)
[2017-09-04] MEDS: VANCOMYCIN INJ 2,000 MG in SODIUM CHLORIDE 0.9% 500 ML IV SCH (00:05)
[2017-09-04] MEDS: SODIUM CHLORIDE 0.9% 1,000 ML IV SCH ×4 (01:10→21:07)
[2017-09-04] MEDS: MORPHINE 4 MG/1 ML VIAL IV PRN ×5 (01:41→23:35)
[2017-09-04] MEDS: MEROPENEM 1,000 MG in SYRINGE 1 EACH IV SCH ×3 (03:51→21:04)
[2017-09-04 04:31] LABS: ABG Base Excess -4.9 MMOL/L (-2.5-2.5); ABG HCO3 20.3 MMOL/L (20-26); ABG Oxygen Saturation 93.7 % (95-100); ABG PCO2 36.3 MM HG (35-48); ABG PH 7.351 (7.35-7.45); ABG TCO2 18.4 MMOL/L (23-27)
[2017-09-04 05:06] LABS: Basophils # 0.1 10*3/uL (0.0-0.2); Basophils % 0.6 % (0.0-0.8); Eosinophils # 0.4 10*3/uL (0.0-0.87); Eosinophils % 2.4 % (0.00-10.9); Hematocrit 30.7 VOL% (42.0-52.0); Hemoglobin 9.7 GM/DL (14.0-18.0); Immature Granulocytes Absolute 3.54 #; Lymphocytes # 1.8 10*3/uL (1.4-4.0); Lymphocytes % 9.8 % (21.2-54.2); Mean Corpuscular HGB Conc 31.6 GM/DL (32-36); Mean Corpuscular Hemoglobin 27 PG (27-34); Mean Corpuscular Volume 84.3 FL (87-102); Mean Platelet Volume 10.8 FL (9.6-12.0); Monocytes # 2.1 10*3/uL (0.11-0.8); Monocytes % 11.2 % (1.7-12.7); Neutrophils # 10.6 10*3/uL (1.4-7.4); Platelet Count 444 T/CUMM (130-400); Red Blood Count 3.64 MC/CUMM (3.8-5.5); Red Cell Distribution Width 18.4 % (9.3-17.3); White Blood Count 18.6 T/CUMM (4-12)
[2017-09-04 05:26] LABS: Calcium 7.7 MG/DL (8.5-10.1); Osmolality,Calculated 286.7 MOS/KG (273-304); Potassium 5.5 MMOL/L (3.5-5.1)
[2017-09-04 05:30] LABS: Prealbumin 11.8 MG/DL (20-40)
[2017-09-04] MEDS: INSULIN REGULAR 100 UNIT/ML SUBCUT SCH ×3 (05:37→18:00)
[2017-09-04 05:43] LABS: Band Neutrophils 6 % (0-10); Eosinophils 5 % (0-10); Hypochromasia 1+; Lymphocytes 6 % (20-55); Myelocytes 3 %; Platelet Estimate Adequate; Segmented Neutrophils 68 % (50-85); Total Cells Counted 100
[2017-09-04] MEDS: LEVOTHYROXINE 100 MCG TABLET PO SCH (06:02)
[2017-09-04] MEDS: ALBUTEROL/IPRATROPIUM 3 ML NEB RESP TX SCH ×4 (07:25→20:11)
[2017-09-04] MEDS: DOCUSATE SODIUM 100 MG/10 ML UDCUP PO SCH ×2 (08:37→21:06)
[2017-09-04] MEDS: CITALOPRAM 20 MG TABLET PO SCH (08:38)
[2017-09-04] MEDS: TAMSULOSIN 0.4 MG CAPSULE PO SCH (08:38)
[2017-09-04] MEDS: NEBIVOLOL 10 MG TABLET PO SCH (08:38)
[2017-09-04] MEDS: MONTELUKAST 10 MG TABLET PO SCH (08:38)
[2017-09-04] MEDS: NYSTATIN CREAM 15 GM TUBE TOP SCH ×2 (08:38→21:06)
[2017-09-04] MEDS: MICAFUNGIN 100 MG in SODIUM CHLORIDE 0.9% 100 ML IV SCH (12:29)
[2017-09-04] MEDS: VANCOMYCIN INJ 1,750 MG in SODIUM CHLORIDE 0.9% 500 ML IV SCH (14:55)
[2017-09-04] MEDS: hydrALAZINE 20 MG/1 ML VIAL IV PRN ×2 (15:09→21:06)
[2017-09-04] MEDS: AMINO ACIDS IV SCH (17:42)
[2017-09-04] MEDS: [UNRECOGNIZED DRUG - OTHER] IV SCH (17:42)
[2017-09-04] MEDS: TRACE ELEMENTS IV SCH (17:42)
[2017-09-04] MEDS: MULTIVITAMIN IV SCH (17:42)
[2017-09-05] MEDS: INSULIN REGULAR 100 UNIT/ML SUBCUT SCH ×4 (01:25→18:22)
[2017-09-05] MEDS: PROPOFOL 1,000 MG/100 ML BOTTLE IV SCH ×7 (01:25→23:29)
[2017-09-05] MEDS: VANCOMYCIN INJ 1,750 MG in SODIUM CHLORIDE 0.9% 500 ML IV SCH ×2 (02:55→14:39)
[2017-09-05 04:45] LABS: ABG HCO3 20.3 MMOL/L (20-26); ABG Oxygen Saturation 98.6 % (95-100); ABG PCO2 34.9 MM HG (35-48); ABG PH 7.361 (7.35-7.45); Allen Test Positive; Pt O2 Delivery Device Ventilator
[2017-09-05] MEDS: MEROPENEM 1,000 MG in SYRINGE 1 EACH IV SCH ×3 (04:55→21:35)
[2017-09-05] MEDS: MORPHINE 4 MG/1 ML VIAL IV PRN ×5 (05:04→21:35)
[2017-09-05 05:16] LABS: Basophils # 0.1 10*3/uL (0.0-0.2); Basophils % 0.7 % (0.0-0.8); Eosinophils # 0.5 10*3/uL (0.0-0.87); Eosinophils % 2.8 % (0.00-10.9); Hematocrit 30.8 VOL% (42.0-52.0); Immature Granulocytes % 13.2 %; Immature Granulocytes Absolute 2.28 #; Lymphocytes # 1.6 10*3/uL (1.4-4.0); Lymphocytes % 9.2 % (21.2-54.2); Mean Corpuscular HGB Conc 32.5 GM/DL (32-36); Mean Corpuscular Hemoglobin 27 PG (27-34); Mean Corpuscular Volume 83.5 FL (87-102); Mean Platelet Volume 10.3 FL (9.6-12.0); Monocytes # 1.6 10*3/uL (0.11-0.8); Monocytes % 9.1 % (1.7-12.7); Neutrophils # 11.3 10*3/uL (1.4-7.4); Platelet Count 481 T/CUMM (130-400); Red Blood Count 3.69 MC/CUMM (3.8-5.5); Red Cell Distribution Width 18.2 % (9.3-17.3); White Blood Count 17.3 T/CUMM (4-12)
[2017-09-05 05:48] LABS: Band Neutrophils 2 % (0-10); Eosinophils 6 % (0-10); Giant Platelets Few; Hypochromasia 1+; Lymphocytes 11 % (20-55); Myelocytes 1 %; Ovalocytes Slight; Platelet Estimate Adequate; Segmented Neutrophils 73 % (50-85); Total Cells Counted 100
[2017-09-05 06:20] LABS: Calcium 7.4 MG/DL (8.5-10.1); Osmolality,Calculated 283.7 MOS/KG (273-304); Potassium 4.9 MMOL/L (3.5-5.1)
[2017-09-05 06:21] LABS: Calcium 7.5 MG/DL (8.5-10.1); Osmolality,Calculated 282.7 MOS/KG (273-304); Potassium 4.9 MMOL/L (3.5-5.1)
[2017-09-05] MEDS: SODIUM CHLORIDE 0.9% 1,000 ML IV SCH ×2 (06:40→18:22)
[2017-09-05] MEDS: LEVOTHYROXINE 100 MCG TABLET PO SCH (06:43)
[2017-09-05] MEDS: ALBUTEROL/IPRATROPIUM 3 ML NEB RESP TX SCH ×4 (07:08→20:40)
[2017-09-05] MEDS: NEBIVOLOL 10 MG TABLET PO SCH (08:16)
[2017-09-05] MEDS: CITALOPRAM 20 MG TABLET PO SCH (08:16)
[2017-09-05] MEDS: DOCUSATE SODIUM 100 MG/10 ML UDCUP PO SCH ×2 (08:16→21:35)
[2017-09-05] MEDS: MONTELUKAST 10 MG TABLET PO SCH (08:16)
[2017-09-05] MEDS: TAMSULOSIN 0.4 MG CAPSULE PO SCH (08:16)
[2017-09-05] MEDS: NYSTATIN CREAM 15 GM TUBE TOP SCH ×2 (08:17→21:50)
[2017-09-05] MEDS: MICAFUNGIN 100 MG in SODIUM CHLORIDE 0.9% 100 ML IV SCH (11:56)
[2017-09-05 12:36] LABS: ABG Base Excess -5.2 MMOL/L (-2.5-2.5); ABG HCO3 20.1 MMOL/L (20-26); ABG Oxygen Saturation 94.9 % (95-100); ABG PCO2 35.3 MM HG (35-48); ABG PH 7.355 (7.35-7.45); ABG PO2 79.5 MM HG (80-95)
[2017-09-05] MEDS: [UNRECOGNIZED DRUG - OTHER] IV SCH (17:21)
[2017-09-05] MEDS: AMINO ACIDS IV SCH (17:21)
[2017-09-05] MEDS: TRACE ELEMENTS IV SCH (17:21)
[2017-09-05] MEDS: MULTIVITAMIN IV SCH (17:21)
[2017-09-06] MEDS: INSULIN REGULAR 100 UNIT/ML SUBCUT SCH ×4 (00:46→17:13)
[2017-09-06] MEDS: ALBUTEROL/IPRATROPIUM 3 ML NEB RESP TX PRN (00:59)
[2017-09-06] MEDS: MORPHINE 4 MG/1 ML VIAL IV PRN (01:58)
[2017-09-06] MEDS: VANCOMYCIN INJ 1,750 MG in SODIUM CHLORIDE 0.9% 500 ML IV SCH ×2 (02:20→14:08)
[2017-09-06] MEDS: PROPOFOL 1,000 MG/100 ML BOTTLE IV SCH ×8 (02:59→21:30)
[2017-09-06] MEDS: hydrALAZINE 20 MG/1 ML VIAL IV PRN (03:32)
[2017-09-06] MEDS ORDERED: fentaNYL 100 MCG/2 ML VIAL IV ONE (03:54)
[2017-09-06 03:59] LABS: ABG Base Excess -5.7 MMOL/L (-2.5-2.5); ABG HCO3 19.7 MMOL/L (20-26); ABG PCO2 32.3 MM HG (35-48); ABG PH 7.372 (7.35-7.45); ABG PO2 63.5 MM HG (80-95); ABG TCO2 16.9 MMOL/L (23-27)
[2017-09-06] MEDS ORDERED: FUROSEMIDE 40 MG/4 ML VIAL IV ONE (04:10)
[2017-09-06] MEDS ORDERED: FUROSEMIDE 20 MG/2 ML VIAL ONE (04:16)
[2017-09-06] MEDS: SODIUM CHLORIDE 0.9% 1,000 ML IV SCH (04:22)
[2017-09-06 04:51] LABS: Albumin 1.3 G/DL (3.4-5.0); Bilirubin,Total 0.4 MG/DL (0.2-1.0); Calcium 7.8 MG/DL (8.5-10.1); Osmolality,Calculated 279.8 MOS/KG (273-304); Total Protein 6.3 G/DL (6.4-8.3)
[2017-09-06] MEDS: MEROPENEM 1,000 MG in SYRINGE 1 EACH IV SCH ×3 (04:59→21:26)
[2017-09-06 05:09] LABS: Basophils # 0.1 10*3/uL (0.0-0.2); Basophils % 0.7 % (0.0-0.8); Eosinophils # 0.7 10*3/uL (0.0-0.87); Eosinophils % 3.8 % (0.00-10.9); Hematocrit 33.4 VOL% (42.0-52.0); Hemoglobin 10.5 GM/DL (14.0-18.0); Immature Granulocytes % 9.3 %; Immature Granulocytes Absolute 1.61 #; Lymphocytes # 1.5 10*3/uL (1.4-4.0); Lymphocytes % 8.9 % (21.2-54.2); Mean Corpuscular HGB Conc 31.4 GM/DL (32-36); Mean Corpuscular Hemoglobin 27 PG (27-34); Mean Corpuscular Volume 85.9 FL (87-102); Mean Platelet Volume 10.3 FL (9.6-12.0); Monocytes # 1.4 10*3/uL (0.11-0.8); Neutrophils % 69.3 % (38.7-73.9); Platelet Count 499 T/CUMM (130-400); Red Blood Count 3.89 MC/CUMM (3.8-5.5); Red Cell Distribution Width 18.3 % (9.3-17.3); White Blood Count 17.3 T/CUMM (4-12)
[2017-09-06 05:26] LABS: ABG HCO3 18.1 MMOL/L (20-26); ABG Oxygen Saturation 98.5 % (95-100); ABG PCO2 30.9 MM HG (35-48); ABG PH 7.385 (7.35-7.45); ABG PO2 153.4 MM HG (80-95); Pt O2 Delivery Device Ventilator
[2017-09-06 05:52] LABS: Eosinophils 4 % (0-10); Lymphocytes 5 % (20-55); Platelet Estimate Normal; Segmented Neutrophils 85 % (50-85); Total Cells Counted 100
[2017-09-06 05:53] LABS: Ovalocytes Slight
[2017-09-06] MEDS: LEVOTHYROXINE 100 MCG TABLET PO SCH (07:00)
[2017-09-06] MEDS: ALBUTEROL/IPRATROPIUM 3 ML NEB RESP TX SCH ×4 (08:40→19:40)
[2017-09-06] MEDS: MONTELUKAST 10 MG TABLET PO SCH (09:38)
[2017-09-06] MEDS: CITALOPRAM 20 MG TABLET PO SCH (09:38)
[2017-09-06] MEDS: NEBIVOLOL 10 MG TABLET PO SCH (09:38)
[2017-09-06] MEDS: DOCUSATE SODIUM 100 MG/10 ML UDCUP PO SCH ×2 (09:38→21:29)
[2017-09-06] MEDS: TAMSULOSIN 0.4 MG CAPSULE PO SCH (09:38)
[2017-09-06] MEDS: NYSTATIN CREAM 15 GM TUBE TOP SCH ×2 (09:43→21:29)
[2017-09-06] MEDS: MICAFUNGIN 100 MG in SODIUM CHLORIDE 0.9% 100 ML IV SCH (13:03)
[2017-09-06] MEDS: STERILE WATER IV SCH (16:44)
[2017-09-06] MEDS: [UNRECOGNIZED DRUG - OTHER] IV SCH (16:44)
[2017-09-06] MEDS: MULTIVITAMIN IV SCH ×2 (16:44→16:52)
[2017-09-06] MEDS: TRACE ELEMENTS IV SCH ×2 (16:44→16:52)
[2017-09-06] MEDS: [UNRECOGNIZED DRUG - OTHER] IV SCH (16:52)
[2017-09-06] MEDS: AMINO ACIDS IV SCH (16:52)
[2017-09-07] MEDS ORDERED: METOCLOPRAMIDE 10 MG/2 ML VIAL IV SCH
[2017-09-07] MEDS: INSULIN REGULAR 100 UNIT/ML SUBCUT SCH ×4 (00:40→18:04)
[2017-09-07] MEDS: PROPOFOL 1,000 MG/100 ML BOTTLE IV SCH ×10 (02:30→23:43)
[2017-09-07 03:31] LABS: Basophils # 0.1 10*3/uL (0.0-0.2); Basophils % 0.5 % (0.0-0.8); Eosinophils # 0.6 10*3/uL (0.0-0.87); Eosinophils % 4.2 % (0.00-10.9); Hematocrit 28.5 VOL% (42.0-52.0); Hemoglobin 8.9 GM/DL (14.0-18.0); Immature Granulocytes % 5.4 %; Immature Granulocytes Absolute 0.71 #; Lymphocytes # 1.5 10*3/uL (1.4-4.0); Lymphocytes % 11.3 % (21.2-54.2); Mean Corpuscular HGB Conc 31.2 GM/DL (32-36); Mean Corpuscular Hemoglobin 26 PG (27-34); Mean Corpuscular Volume 84.6 FL (87-102); Mean Platelet Volume 10.4 FL (9.6-12.0); Monocytes # 1.2 10*3/uL (0.11-0.8); Neutrophils # 9.1 10*3/uL (1.4-7.4); Neutrophils % 69.6 % (38.7-73.9); Platelet Count 479 T/CUMM (130-400); Red Blood Count 3.37 MC/CUMM (3.8-5.5); Red Cell Distribution Width 18.3 % (9.3-17.3); White Blood Count 13.2 T/CUMM (4-12)
[2017-09-07 03:53] LABS: ABG Base Excess -0.6 MMOL/L (-2.5-2.5); ABG HCO3 22.7 MMOL/L (20-26); ABG Oxygen Saturation 97.9 % (95-100); ABG PCO2 32.7 MM HG (35-48); ABG PO2 119.1 MM HG (80-95); ABG TCO2 23.7 MMOL/L (23-27)
[2017-09-07 04:18] LABS: Albumin 1.3 G/DL (3.4-5.0); Bilirubin,Total 0.8 MG/DL (0.2-1.0); Calcium 7.7 MG/DL (8.5-10.1); Osmolality,Calculated 286.7 MOS/KG (273-304); Potassium 4.6 MMOL/L (3.5-5.1); Total Protein 5.9 G/DL (6.4-8.3)
[2017-09-07 05:05] LABS: Band Neutrophils 3 % (0-10); Eosinophils 3 % (0-10); Hypochromasia 1+; Lymphocytes 8 % (20-55); Myelocytes 2 %; Ovalocytes Slight; Platelet Estimate Adequate; Segmented Neutrophils 75 % (50-85); Total Cells Counted 100
[2017-09-07] MEDS: fentaNYL 100 MCG/2 ML VIAL IV PRN ×2 (05:10→08:58)
[2017-09-07] MEDS: MEROPENEM 1,000 MG in SYRINGE 1 EACH IV SCH ×3 (05:50→21:00)
[2017-09-07] MEDS: LEVOTHYROXINE 100 MCG TABLET PO SCH (06:01)
[2017-09-07] MEDS: ALBUTEROL/IPRATROPIUM 3 ML NEB RESP TX SCH ×4 (07:50→19:35)
[2017-09-07] MEDS: CITALOPRAM 20 MG TABLET PO SCH (08:50)
[2017-09-07] MEDS: DOCUSATE SODIUM 100 MG/10 ML UDCUP PO SCH (08:50)
[2017-09-07] MEDS: TAMSULOSIN 0.4 MG CAPSULE PO SCH (08:50)
[2017-09-07] MEDS: NEBIVOLOL 10 MG TABLET PO SCH (08:50)
[2017-09-07] MEDS: MONTELUKAST 10 MG TABLET PO SCH (08:50)
[2017-09-07] MEDS: PANTOPRAZOLE 40 MG VIAL IV SCH (08:56)
[2017-09-07] MEDS: NYSTATIN CREAM 15 GM TUBE TOP SCH ×2 (08:56→21:00)
[2017-09-07] MEDS: ENOXAPARIN 40 MG/0.4 ML SYRINGE SUBCUT SCH (11:02)
[2017-09-07] MEDS: MICAFUNGIN 100 MG in SODIUM CHLORIDE 0.9% 100 ML IV SCH (12:43)
[2017-09-07] MEDS: STERILE WATER IV SCH (18:15)
[2017-09-07] MEDS: TRACE ELEMENTS IV SCH (18:15)
[2017-09-07] MEDS: [UNRECOGNIZED DRUG - OTHER] IV SCH (18:15)
[2017-09-07] MEDS: MULTIVITAMIN IV SCH (18:15)
[2017-09-08] MEDS: DOCUSATE SODIUM 100 MG/10 ML UDCUP PO SCH ×3 (01:22→21:29)
[2017-09-08] MEDS: INSULIN REGULAR 100 UNIT/ML SUBCUT SCH ×4 (01:23→17:49)
[2017-09-08] MEDS: PANTOPRAZOLE 40 MG VIAL IV SCH ×3 (01:23→21:30)
[2017-09-08] MEDS: PROPOFOL 1,000 MG/100 ML BOTTLE IV SCH ×9 (01:45→23:00)
[2017-09-08] MEDS: fentaNYL 100 MCG/2 ML VIAL IV PRN ×4 (02:30→23:15)
[2017-09-08 03:34] LABS: Basophils # 0.1 10*3/uL (0.0-0.2); Basophils % 0.6 % (0.0-0.8); Eosinophils # 0.3 10*3/uL (0.0-0.87); Eosinophils % 2.8 % (0.00-10.9); Hematocrit 27.7 VOL% (42.0-52.0); Hemoglobin 8.8 GM/DL (14.0-18.0); Immature Granulocytes % 3.8 %; Immature Granulocytes Absolute 0.44 #; Lymphocytes # 1.8 10*3/uL (1.4-4.0); Lymphocytes % 15.2 % (21.2-54.2); Mean Corpuscular HGB Conc 31.8 GM/DL (32-36); Mean Corpuscular Hemoglobin 27 PG (27-34); Mean Platelet Volume 10.3 FL (9.6-12.0); Monocytes # 1.4 10*3/uL (0.11-0.8); Neutrophils # 7.5 10*3/uL (1.4-7.4); Neutrophils % 65.6 % (38.7-73.9); Platelet Count 454 T/CUMM (130-400); Red Blood Count 3.26 MC/CUMM (3.8-5.5); Red Cell Distribution Width 18.3 % (9.3-17.3); White Blood Count 11.5 T/CUMM (4-12)
[2017-09-08 03:50] LABS: Calcium 7.8 MG/DL (8.5-10.1); Osmolality,Calculated 290.5 MOS/KG (273-304); Potassium 4.1 MMOL/L (3.5-5.1)
[2017-09-08 03:54] LABS: ABG Base Excess 0.4 MMOL/L (-2.5-2.5); ABG HCO3 23.9 MMOL/L (20-26); ABG Oxygen Saturation 95.7 % (95-100); ABG PH 7.465 (7.35-7.45); ABG PO2 84.7 MM HG (80-95); Allen Test Positive; Pt O2 Delivery Device Ventilator
[2017-09-08] MEDS: MEROPENEM 1,000 MG in SYRINGE 1 EACH IV SCH ×3 (04:45→21:26)
[2017-09-08] MEDS: LEVOTHYROXINE 100 MCG TABLET PO SCH (07:00)
[2017-09-08] MEDS: ALBUTEROL/IPRATROPIUM 3 ML NEB RESP TX SCH ×4 (07:18→19:20)
[2017-09-08] MEDS: CITALOPRAM 20 MG TABLET PO SCH (08:46)
[2017-09-08] MEDS: NEBIVOLOL 10 MG TABLET PO SCH (08:46)
[2017-09-08] MEDS: TAMSULOSIN 0.4 MG CAPSULE PO SCH (08:46)
[2017-09-08] MEDS: MONTELUKAST 10 MG TABLET PO SCH (08:46)
[2017-09-08] MEDS: NYSTATIN CREAM 15 GM TUBE TOP SCH ×2 (09:41→21:29)
[2017-09-08] MEDS: ENOXAPARIN 40 MG/0.4 ML SYRINGE SUBCUT SCH (09:48)
[2017-09-08] MEDS: VANCOMYCIN INJ 2,000 MG in SODIUM CHLORIDE 0.9% 500 ML IV SCH (09:49)
[2017-09-08] MEDS: MICAFUNGIN 100 MG in SODIUM CHLORIDE 0.9% 100 ML IV SCH (11:54)
[2017-09-08] MEDS: TRACE ELEMENTS IV SCH (17:27)
[2017-09-08] MEDS: MULTIVITAMIN IV SCH (17:27)
[2017-09-08] MEDS: STERILE WATER IV SCH (17:27)
[2017-09-08] MEDS: [UNRECOGNIZED DRUG - OTHER] IV SCH (17:27)
[2017-09-09] MEDS: PROPOFOL 1,000 MG/100 ML BOTTLE IV SCH ×7 (01:30→22:38)
[2017-09-09] MEDS: INSULIN REGULAR 100 UNIT/ML SUBCUT SCH ×4 (03:14→17:55)
[2017-09-09 03:34] LABS: ABG Base Excess -1.4 MMOL/L (-2.5-2.5); ABG HCO3 22.5 MMOL/L (20-26); ABG Oxygen Saturation 97.5 % (95-100); ABG PCO2 34.3 MM HG (35-48); ABG PH 7.435 (7.35-7.45); ABG PO2 108.5 MM HG (80-95); ABG TCO2 23.6 MMOL/L (23-27); Allen Test Positive; Pt O2 Delivery Device Ventilator
[2017-09-09] MEDS: MEROPENEM 1,000 MG in SYRINGE 1 EACH IV SCH ×3 (04:30→21:45)
[2017-09-09 05:55] LABS: Basophils # 0.1 10*3/uL (0.0-0.2); Basophils % 0.9 % (0.0-0.8); Eosinophils # 0.5 10*3/uL (0.0-0.87); Hematocrit 28.2 VOL% (42.0-52.0); Hemoglobin 8.9 GM/DL (14.0-18.0); Immature Granulocytes % 2.4 %; Immature Granulocytes Absolute 0.24 #; Lymphocytes # 2.1 10*3/uL (1.4-4.0); Lymphocytes % 20.5 % (21.2-54.2); Mean Corpuscular HGB Conc 31.6 GM/DL (32-36); Mean Corpuscular Hemoglobin 27 PG (27-34); Mean Corpuscular Volume 84.9 FL (87-102); Mean Platelet Volume 10.2 FL (9.6-12.0); Monocytes # 1.3 10*3/uL (0.11-0.8); Monocytes % 13.3 % (1.7-12.7); Neutrophils # 5.9 10*3/uL (1.4-7.4); Neutrophils % 57.9 % (38.7-73.9); Platelet Count 438 T/CUMM (130-400); Red Blood Count 3.32 MC/CUMM (3.8-5.5); Red Cell Distribution Width 18.1 % (9.3-17.3); White Blood Count 10.1 T/CUMM (4-12)
[2017-09-09] MEDS: LEVOTHYROXINE 100 MCG TABLET PO SCH (06:15)
[2017-09-09 06:21] LABS: Prealbumin 18.1 MG/DL (20-40)
[2017-09-09 06:22] LABS: Calcium 8.1 MG/DL (8.5-10.1); Osmolality,Calculated 291.4 MOS/KG (273-304); Potassium 4.1 MMOL/L (3.5-5.1)
[2017-09-09] MEDS: ALBUTEROL/IPRATROPIUM 3 ML NEB RESP TX SCH ×4 (07:17→19:20)
[2017-09-09] MEDS: NYSTATIN CREAM 15 GM TUBE TOP SCH ×2 (08:30→21:45)
[2017-09-09] MEDS: PANTOPRAZOLE 40 MG VIAL IV SCH ×2 (08:35→21:43)
[2017-09-09] MEDS: fentaNYL 100 MCG/2 ML VIAL IV PRN ×2 (08:37→11:42)
[2017-09-09] MEDS: MONTELUKAST 10 MG TABLET PO SCH (10:00)
[2017-09-09] MEDS: TAMSULOSIN 0.4 MG CAPSULE PO SCH (10:00)
[2017-09-09] MEDS: DOCUSATE SODIUM 100 MG/10 ML UDCUP PO SCH ×2 (10:00→21:38)
[2017-09-09] MEDS: NEBIVOLOL 10 MG TABLET PO SCH (10:00)
[2017-09-09] MEDS: CITALOPRAM 20 MG TABLET PO SCH (10:00)
[2017-09-09] MEDS: METOPROLOL TARTRATE 5 MG/5 ML VIAL IV SCH ×3 (10:08→17:30)
[2017-09-09] MEDS: ENOXAPARIN 40 MG/0.4 ML SYRINGE SUBCUT SCH (10:16)
[2017-09-09] MEDS: hydrALAZINE 20 MG/1 ML VIAL IV PRN (10:43)
[2017-09-09 11:33] LABS: ABG Base Excess -2.4 MMOL/L (-2.5-2.5); ABG HCO3 20.9 MMOL/L (20-26); ABG Oxygen Saturation 96.6 % (95-100); ABG PCO2 30.9 MM HG (35-48); ABG PH 7.448 (7.35-7.45); ABG TCO2 21.8 MMOL/L (23-27)
[2017-09-09] MEDS: MICAFUNGIN 100 MG in SODIUM CHLORIDE 0.9% 100 ML IV SCH (11:42)
[2017-09-09] MEDS ORDERED: hydrALAZINE 20 MG/1 ML VIAL IV PRN (13:22)
[2017-09-09] MEDS: MULTIVITAMIN IV SCH (17:15)
[2017-09-09] MEDS: TRACE ELEMENTS IV SCH (17:15)
[2017-09-09] MEDS: STERILE WATER IV SCH (17:15)
[2017-09-09] MEDS: [UNRECOGNIZED DRUG - OTHER] IV SCH (17:15)
[2017-09-09] MEDS: ASPIRIN 300 MG SUPP RECTAL SCH (17:46)
[2017-09-10] MEDS: METOPROLOL TARTRATE 5 MG/5 ML VIAL IV SCH ×4 (00:59→17:02)
[2017-09-10] MEDS: INSULIN REGULAR 100 UNIT/ML SUBCUT SCH ×4 (01:30→17:08)
[2017-09-10] MEDS: PROPOFOL 1,000 MG/100 ML BOTTLE IV SCH ×6 (01:45→21:39)
[2017-09-10 04:21] LABS: ABG Base Excess -2.6 MMOL/L (-2.5-2.5); ABG HCO3 21.3 MMOL/L (20-26); ABG Oxygen Saturation 98.3 % (95-100); ABG PCO2 33.1 MM HG (35-48); ABG PH 7.426 (7.35-7.45); ABG PO2 133.3 MM HG (80-95); ABG TCO2 22.3 MMOL/L (23-27); Allen Test Positive; Pt O2 Delivery Device Ventilator
[2017-09-10 04:35] LABS: Basophils % 0.5 % (0.0-0.8); Eosinophils # 0.3 10*3/uL (0.0-0.87); Eosinophils % 3.7 % (0.00-10.9); Hematocrit 25.4 VOL% (42.0-52.0); Immature Granulocytes % 1.4 %; Immature Granulocytes Absolute 0.11 #; Lymphocytes # 1.5 10*3/uL (1.4-4.0); Lymphocytes % 18.6 % (21.2-54.2); Mean Corpuscular HGB Conc 31.5 GM/DL (32-36); Mean Corpuscular Hemoglobin 26 PG (27-34); Mean Corpuscular Volume 83.3 FL (87-102); Mean Platelet Volume 10.8 FL (9.6-12.0); Monocytes # 1.1 10*3/uL (0.11-0.8); Monocytes % 14.1 % (1.7-12.7); Neutrophils # 4.8 10*3/uL (1.4-7.4); Neutrophils % 61.7 % (38.7-73.9); Platelet Count 394 T/CUMM (130-400); Red Blood Count 3.05 MC/CUMM (3.8-5.5); Red Cell Distribution Width 18.4 % (9.3-17.3); White Blood Count 7.8 T/CUMM (4-12)
[2017-09-10] MEDS: MEROPENEM 1,000 MG in SYRINGE 1 EACH IV SCH ×3 (04:55→21:01)
[2017-09-10 05:04] LABS: Calcium 8.2 MG/DL (8.5-10.1); Osmolality,Calculated 296.1 MOS/KG (273-304); Potassium 3.8 MMOL/L (3.5-5.1)
[2017-09-10] MEDS: ALBUTEROL/IPRATROPIUM 3 ML NEB RESP TX SCH ×4 (06:59→20:07)
[2017-09-10] MEDS: LEVOTHYROXINE 100 MCG TABLET PO SCH (07:15)
[2017-09-10 07:20] LABS: ABG Base Excess -2.9 MMOL/L (-2.5-2.5); ABG Oxygen Saturation 98.6 % (95-100); ABG PCO2 32.6 MM HG (35-48); ABG PH 7.417 (7.35-7.45); ABG TCO2 19.4 MMOL/L (23-27)
[2017-09-10] MEDS: MONTELUKAST 10 MG TABLET PO SCH (09:13)
[2017-09-10] MEDS: CITALOPRAM 20 MG TABLET PO SCH (09:13)
[2017-09-10] MEDS: TAMSULOSIN 0.4 MG CAPSULE PO SCH (09:13)
[2017-09-10] MEDS: PANTOPRAZOLE 40 MG VIAL IV SCH ×2 (09:13→21:01)
[2017-09-10] MEDS: ASPIRIN 300 MG SUPP RECTAL SCH (09:13)
[2017-09-10] MEDS: NYSTATIN CREAM 15 GM TUBE TOP SCH ×2 (09:18→21:02)
[2017-09-10] MEDS: DOCUSATE SODIUM 100 MG/10 ML UDCUP PO SCH ×2 (09:23→21:01)
[2017-09-10] MEDS: VANCOMYCIN INJ 2,000 MG in SODIUM CHLORIDE 0.9% 500 ML IV SCH (10:06)
[2017-09-10] MEDS: ENOXAPARIN 40 MG/0.4 ML SYRINGE SUBCUT SCH (10:06)
[2017-09-10] MEDS: fentaNYL 100 MCG/2 ML VIAL IV PRN (10:29)
[2017-09-10] MEDS ORDERED: SODIUM CHLORIDE 0.9% 1,000 ML IV PRN (11:00)
[2017-09-10] MEDS: FUROSEMIDE 20 MG/2 ML VIAL IV SCH ×2 (11:32→21:01)
[2017-09-10] MEDS: POTASSIUM CHLORIDE RIDER 10 MEQ in PREMIX 1 EACH IV PRN ×2 (11:32→12:35)
[2017-09-10] MEDS: MICAFUNGIN 100 MG in SODIUM CHLORIDE 0.9% 100 ML IV SCH (12:16)
[2017-09-10] MEDS: TRACE ELEMENTS IV SCH (17:56)
[2017-09-10] MEDS: STERILE WATER IV SCH (17:56)
[2017-09-10] MEDS: MULTIVITAMIN IV SCH (17:56)
[2017-09-10] MEDS: [UNRECOGNIZED DRUG - OTHER] IV SCH (17:56)
[2017-09-11] MEDS: METOPROLOL TARTRATE 5 MG/5 ML VIAL IV SCH ×4 (00:11→19:04)
[2017-09-11] MEDS: INSULIN REGULAR 100 UNIT/ML SUBCUT SCH ×4 (00:11→19:03)
[2017-09-11] MEDS: fentaNYL 100 MCG/2 ML VIAL IV PRN ×2 (01:13→14:27)
[2017-09-11] MEDS: PROPOFOL 1,000 MG/100 ML BOTTLE IV SCH ×6 (01:15→22:21)
[2017-09-11 02:47] LABS: Basophils # 0.1 10*3/uL (0.0-0.2); Basophils % 0.7 % (0.0-0.8); Eosinophils # 0.3 10*3/uL (0.0-0.87); Eosinophils % 4.1 % (0.00-10.9); Hematocrit 27.4 VOL% (42.0-52.0); Immature Granulocytes % 1.1 %; Immature Granulocytes Absolute 0.08 #; Lymphocytes # 1.3 10*3/uL (1.4-4.0); Lymphocytes % 17.4 % (21.2-54.2); Mean Corpuscular HGB Conc 32.8 GM/DL (32-36); Mean Corpuscular Hemoglobin 27 PG (27-34); Mean Platelet Volume 10.8 FL (9.6-12.0); Monocytes # 1.1 10*3/uL (0.11-0.8); Monocytes % 14.6 % (1.7-12.7); Neutrophils # 4.5 10*3/uL (1.4-7.4); Neutrophils % 62.1 % (38.7-73.9); Platelet Count 371 T/CUMM (130-400); White Blood Count 7.3 T/CUMM (4-12)
[2017-09-11 03:11] LABS: Osmolality,Calculated 296.1 MOS/KG (273-304)
[2017-09-11] MEDS: FUROSEMIDE 20 MG/2 ML VIAL IV SCH ×3 (04:01→20:00)
[2017-09-11] MEDS: MEROPENEM 1,000 MG in SYRINGE 1 EACH IV SCH ×3 (04:01→20:00)
[2017-09-11 04:29] LABS: ABG Base Excess -2.6 MMOL/L (-2.5-2.5); ABG HCO3 22.2 MMOL/L (20-26); ABG Oxygen Saturation 98.5 % (95-100); ABG PCO2 32.3 MM HG (35-48); ABG PH 7.424 (7.35-7.45); ABG TCO2 19.3 MMOL/L (23-27)
[2017-09-11] MEDS: LEVOTHYROXINE 100 MCG TABLET PO SCH (06:12)
[2017-09-11] MEDS: ALBUTEROL/IPRATROPIUM 3 ML NEB RESP TX SCH ×4 (06:45→19:25)
[2017-09-11] MEDS: DOCUSATE SODIUM 100 MG/10 ML UDCUP PO SCH ×2 (09:50→20:33)
[2017-09-11] MEDS: MONTELUKAST 10 MG TABLET PO SCH (09:51)
[2017-09-11] MEDS: CITALOPRAM 20 MG TABLET PO SCH (09:51)
[2017-09-11] MEDS: ENOXAPARIN 40 MG/0.4 ML SYRINGE SUBCUT SCH (09:51)
[2017-09-11] MEDS: PANTOPRAZOLE 40 MG VIAL IV SCH ×2 (09:51→20:33)
[2017-09-11] MEDS: NYSTATIN CREAM 15 GM TUBE TOP SCH (09:52)
[2017-09-11] MEDS: ASPIRIN 300 MG SUPP RECTAL SCH (09:52)
[2017-09-11] MEDS: TAMSULOSIN 0.4 MG CAPSULE PO SCH (09:52)
[2017-09-11] MEDS: MICAFUNGIN 100 MG in SODIUM CHLORIDE 0.9% 100 ML IV SCH (14:26)
[2017-09-11] MEDS: STERILE WATER IV SCH (18:20)
[2017-09-11] MEDS: [UNRECOGNIZED DRUG - OTHER] IV SCH (18:20)
[2017-09-11] MEDS: TRACE ELEMENTS IV SCH (18:20)
[2017-09-11] MEDS: MULTIVITAMIN IV SCH (18:20)
[2017-09-12] MEDS: NYSTATIN CREAM 15 GM TUBE TOP SCH ×3 (00:56→21:46)
[2017-09-12] MEDS: INSULIN REGULAR 100 UNIT/ML SUBCUT SCH ×4 (00:56→17:55)
[2017-09-12] MEDS: PROPOFOL 1,000 MG/100 ML BOTTLE IV SCH ×2 (02:30→10:54)
[2017-09-12 03:15] LABS: ABG Base Excess -2.2 MMOL/L (-2.5-2.5); ABG HCO3 21.2 MMOL/L (20-26); ABG Oxygen Saturation 98.2 % (95-100); ABG PCO2 31.3 MM HG (35-48); ABG PH 7.449 (7.35-7.45); ABG PO2 134.5 MM HG (80-95); ABG TCO2 22.2 MMOL/L (23-27); Allen Test Positive; Pt O2 Delivery Device Ventilator
[2017-09-12 04:45] LABS: Basophils # 0.1 10*3/uL (0.0-0.2); Basophils % 0.9 % (0.0-0.8); Eosinophils # 0.5 10*3/uL (0.0-0.87); Eosinophils % 7.1 % (0.00-10.9); Hematocrit 27.5 VOL% (42.0-52.0); Hemoglobin 8.7 GM/DL (14.0-18.0); Immature Granulocytes % 0.7 %; Immature Granulocytes Absolute 0.05 #; Lymphocytes # 1.5 10*3/uL (1.4-4.0); Mean Corpuscular HGB Conc 31.6 GM/DL (32-36); Mean Corpuscular Hemoglobin 27 PG (27-34); Mean Corpuscular Volume 85.1 FL (87-102); Mean Platelet Volume 11.3 FL (9.6-12.0); Monocytes # 1.3 10*3/uL (0.11-0.8); Neutrophils # 4.1 10*3/uL (1.4-7.4); Neutrophils % 54.3 % (38.7-73.9); Platelet Count 315 T/CUMM (130-400); Red Blood Count 3.23 MC/CUMM (3.8-5.5); Red Cell Distribution Width 18.3 % (9.3-17.3); White Blood Count 7.6 T/CUMM (4-12)
[2017-09-12 05:08] LABS: Eosinophils 7 % (0-10); Hypochromasia 1+; Lymphocytes 24 % (20-55); Platelet Estimate Adequate; Segmented Neutrophils 57 % (50-85); Total Cells Counted 100
[2017-09-12 05:09] LABS: Ovalocytes Slight
[2017-09-12 05:11] LABS: Calcium 8.2 MG/DL (8.5-10.1); Osmolality,Calculated 296.1 MOS/KG (273-304); Potassium 3.7 MMOL/L (3.5-5.1)
[2017-09-12 05:16] LABS: Calcium 7.9 MG/DL (8.5-10.1); Osmolality,Calculated 299.8 MOS/KG (273-304); Potassium 3.9 MMOL/L (3.5-5.1); Prealbumin 20.6 MG/DL (20-40)
[2017-09-12] MEDS: MEROPENEM 1,000 MG in SYRINGE 1 EACH IV SCH ×3 (05:35→21:00)
[2017-09-12] MEDS: FUROSEMIDE 20 MG/2 ML VIAL IV SCH ×2 (05:40→17:05)
[2017-09-12] MEDS: ALBUTEROL/IPRATROPIUM 3 ML NEB RESP TX SCH ×4 (06:54→19:20)
[2017-09-12] MEDS: LEVOTHYROXINE 100 MCG TABLET PO SCH (07:10)
[2017-09-12] MEDS: fentaNYL 100 MCG/2 ML VIAL IV PRN ×4 (08:15→16:54)
[2017-09-12] MEDS: METOPROLOL TARTRATE 5 MG/5 ML VIAL IV SCH ×3 (09:29→17:05)
[2017-09-12] MEDS: CITALOPRAM 20 MG TABLET PO SCH (09:42)
[2017-09-12] MEDS: TAMSULOSIN 0.4 MG CAPSULE PO SCH (09:42)
[2017-09-12] MEDS: DOCUSATE SODIUM 100 MG/10 ML UDCUP PO SCH ×2 (09:42→21:49)
[2017-09-12] MEDS: ASPIRIN 325 MG TABLET PO SCH (09:42)
[2017-09-12] MEDS: MONTELUKAST 10 MG TABLET PO SCH (09:42)
[2017-09-12] MEDS: PANTOPRAZOLE 40 MG VIAL IV SCH ×2 (09:45→21:46)
[2017-09-12] MEDS: ENOXAPARIN 40 MG/0.4 ML SYRINGE SUBCUT SCH (10:16)
[2017-09-12] MEDS: VANCOMYCIN INJ 2,000 MG in SODIUM CHLORIDE 0.9% 500 ML IV SCH (10:16)
[2017-09-12] MEDS ORDERED: METOPROLOL TARTRATE 25 MG TABLET PO ONE (12:25)
[2017-09-12] MEDS: MICAFUNGIN 100 MG in SODIUM CHLORIDE 0.9% 100 ML IV SCH (12:59)
[2017-09-12] MEDS: NITROGLYCERIN 0.2 MG/HR PATCH TRANSDERM SCH (16:53)
[2017-09-12] MEDS: FUROSEMIDE 40 MG/4 ML VIAL IV SCH ×2 (16:58→21:47)
[2017-09-12] MEDS: ZINC OXIDE PASTE 113 GM TUBE TOP SCH ×2 (16:58→21:48)
[2017-09-12] MEDS ORDERED: METOPROLOL TARTRATE 5 MG/5 ML VIAL IV SCH (18:00)
[2017-09-12] MEDS ORDERED: METOPROLOL TARTRATE 25 MG TABLET PO SCH (21:00)
[2017-09-12] MEDS: METOPROLOL TARTRATE 50 MG TABLET PO SCH (21:47)
[2017-09-13] MEDS: INSULIN REGULAR 100 UNIT/ML SUBCUT SCH ×5 (00:55→23:58)
[2017-09-13] MEDS: fentaNYL 100 MCG/2 ML VIAL IV PRN ×5 (01:10→21:00)
[2017-09-13 03:43] LABS: ABG Base Excess -0.1 MMOL/L (-2.5-2.5); ABG HCO3 23.4 MMOL/L (20-26); ABG Oxygen Saturation 98.6 % (95-100); ABG PCO2 33.6 MM HG (35-48); ABG PH 7.461 (7.35-7.45); ABG PO2 164.3 MM HG (80-95); ABG TCO2 24.4 MMOL/L (23-27); Allen Test Positive; Pt O2 Delivery Device Ventilator
[2017-09-13] MEDS: MEROPENEM 1,000 MG in SYRINGE 1 EACH IV SCH (04:47)
[2017-09-13 04:51] LABS: Basophils # 0.1 10*3/uL (0.0-0.2); Basophils % 0.8 % (0.0-0.8); Eosinophils # 0.5 10*3/uL (0.0-0.87); Eosinophils % 6.4 % (0.00-10.9); Hematocrit 29.4 VOL% (42.0-52.0); Hemoglobin 9.2 GM/DL (14.0-18.0); Immature Granulocytes % 0.6 %; Immature Granulocytes Absolute 0.04 #; Lymphocytes # 1.8 10*3/uL (1.4-4.0); Lymphocytes % 25.5 % (21.2-54.2); Mean Corpuscular HGB Conc 31.3 GM/DL (32-36); Mean Corpuscular Hemoglobin 27 PG (27-34); Mean Corpuscular Volume 85.5 FL (87-102); Mean Platelet Volume 11.4 FL (9.6-12.0); Monocytes # 1.2 10*3/uL (0.11-0.8); Monocytes % 17.2 % (1.7-12.7); Neutrophils # 3.6 10*3/uL (1.4-7.4); Neutrophils % 49.5 % (38.7-73.9); Platelet Count 300 T/CUMM (130-400); Red Blood Count 3.44 MC/CUMM (3.8-5.5); Red Cell Distribution Width 18.1 % (9.3-17.3); White Blood Count 7.2 T/CUMM (4-12)
[2017-09-13 05:09] LABS: Calcium 8.1 MG/DL (8.5-10.1); Potassium 3.7 MMOL/L (3.5-5.1)
[2017-09-13 05:10] LABS: Potassium 3.7 MMOL/L (3.5-5.1)
[2017-09-13 05:12] LABS: Albumin 1.7 G/DL (3.4-5.0); Bilirubin,Direct 0.19 MG/DL (0.0-0.20); Bilirubin,Indirect 0.2 MG/DL (0.0-1.0); Bilirubin,Total 0.4 MG/DL (0.2-1.0); Eosinophils 5 % (0-10); Giant Platelets Few; Hypochromasia 1+; Lymphocytes 31 % (20-55); Ovalocytes Slight; Platelet Estimate Adequate; Segmented Neutrophils 46 % (50-85); Total Cells Counted 100; Total Protein 7.1 G/DL (6.4-8.3)
[2017-09-13] MEDS: LEVOTHYROXINE 100 MCG TABLET PO SCH (06:44)
[2017-09-13] MEDS: ALBUTEROL/IPRATROPIUM 3 ML NEB RESP TX SCH ×4 (07:17→19:19)
[2017-09-13] MEDS: MONTELUKAST 10 MG TABLET PO SCH (07:59)
[2017-09-13] MEDS: CITALOPRAM 20 MG TABLET PO SCH (07:59)
[2017-09-13] MEDS: PANTOPRAZOLE 40 MG VIAL IV SCH ×2 (07:59→21:00)
[2017-09-13] MEDS: DOCUSATE SODIUM 100 MG/10 ML UDCUP PO SCH ×2 (07:59→21:00)
[2017-09-13] MEDS: ASPIRIN 325 MG TABLET PO SCH (07:59)
[2017-09-13] MEDS: METOPROLOL TARTRATE 50 MG TABLET PO SCH ×2 (07:59→21:00)
[2017-09-13] MEDS: TAMSULOSIN 0.4 MG CAPSULE PO SCH (07:59)
[2017-09-13] MEDS: NYSTATIN CREAM 15 GM TUBE TOP SCH ×2 (08:00→21:00)
[2017-09-13] MEDS: ZINC OXIDE PASTE 113 GM TUBE TOP SCH ×2 (08:00→21:00)
[2017-09-13] MEDS: FUROSEMIDE 40 MG/4 ML VIAL IV SCH ×3 (08:00→21:00)
[2017-09-13] MEDS: NITROGLYCERIN 0.2 MG/HR PATCH TRANSDERM SCH (09:26)
[2017-09-13] MEDS: ENOXAPARIN 40 MG/0.4 ML SYRINGE SUBCUT SCH (10:24)
[2017-09-13] MEDS ORDERED: MAGNESIUM SULF RIDER 4 GM in PREMIX 1 EACH IV PRN (11:06)
[2017-09-13] MEDS: PROPOFOL 1,000 MG/100 ML BOTTLE IV SCH (11:07)
[2017-09-13] MEDS: MAGNESIUM SULF RIDER 2 GM in PREMIX 1 EACH IV PRN (14:12)
[2017-09-13] MEDS: ATORVASTATIN 20 MG TABLET PO SCH (20:59)
[2017-09-13] MEDS ORDERED: VANCOMYCIN INJ 2,000 MG in SODIUM CHLORIDE 0.9% 500 ML IV SCH (22:00)
[2017-09-14 03:54] LABS: ABG Base Excess 4.1 MMOL/L (-2.5-2.5); ABG HCO3 28.4 MMOL/L (20-26); ABG Oxygen Saturation 98.6 % (95-100); ABG PCO2 41.4 MM HG (35-48); ABG PH 7.454 (7.35-7.45); ABG PO2 156.6 MM HG (80-95); ABG TCO2 29.7 MMOL/L (23-27); Allen Test Positive; Pt O2 Delivery Device Ventilator
[2017-09-14 04:40] LABS: Basophils % 0.7 % (0.0-0.8); Eosinophils # 0.3 10*3/uL (0.0-0.87); Eosinophils % 4.9 % (0.00-10.9); Hematocrit 27.8 VOL% (42.0-52.0); Immature Granulocytes % 0.3 %; Immature Granulocytes Absolute 0.02 #; Lymphocytes # 1.6 10*3/uL (1.4-4.0); Lymphocytes % 25.7 % (21.2-54.2); Mean Corpuscular HGB Conc 32.4 GM/DL (32-36); Mean Corpuscular Hemoglobin 27 PG (27-34); Mean Corpuscular Volume 83.2 FL (87-102); Monocytes % 15.9 % (1.7-12.7); Neutrophils # 3.2 10*3/uL (1.4-7.4); Neutrophils % 52.5 % (38.7-73.9); Platelet Count 286 T/CUMM (130-400); Red Blood Count 3.34 MC/CUMM (3.8-5.5); Red Cell Distribution Width 18.1 % (9.3-17.3); White Blood Count 6.2 T/CUMM (4-12)
[2017-09-14 05:37] LABS: Band Neutrophils 3 % (0-10); Eosinophils 12 % (0-10); Lymphocytes 19 % (20-55); Segmented Neutrophils 51 % (50-85); Total Cells Counted 100
[2017-09-14 05:38] LABS: Hypochromasia 1+; Microcytosis 1+; Platelet Estimate Normal
[2017-09-14] MEDS: INSULIN REGULAR 100 UNIT/ML SUBCUT SCH ×4 (05:41→23:27)
[2017-09-14] MEDS: LEVOTHYROXINE 100 MCG TABLET PO SCH (05:43)
[2017-09-14 05:57] LABS: Calcium 8.4 MG/DL (8.5-10.1); Osmolality,Calculated 297.8 MOS/KG (273-304); Potassium 3.6 MMOL/L (3.5-5.1)
[2017-09-14] MEDS: ALBUTEROL/IPRATROPIUM 3 ML NEB RESP TX SCH ×4 (07:19→19:42)
[2017-09-14] MEDS: fentaNYL 100 MCG/2 ML VIAL IV PRN ×5 (07:31→22:18)
[2017-09-14] MEDS: POTASSIUM CHLORIDE RIDER 10 MEQ in PREMIX 1 EACH IV PRN ×2 (08:26→09:30)
[2017-09-14] MEDS: ZINC OXIDE PASTE 113 GM TUBE TOP SCH ×2 (08:26→20:55)
[2017-09-14] MEDS: CITALOPRAM 20 MG TABLET PO SCH (08:27)
[2017-09-14] MEDS: TAMSULOSIN 0.4 MG CAPSULE PO SCH (08:27)
[2017-09-14] MEDS: METOPROLOL TARTRATE 50 MG TABLET PO SCH ×2 (08:27→20:53)
[2017-09-14] MEDS: ASPIRIN 325 MG TABLET PO SCH (08:27)
[2017-09-14] MEDS: DOCUSATE SODIUM 100 MG/10 ML UDCUP PO SCH ×2 (08:27→20:53)
[2017-09-14] MEDS: NITROGLYCERIN 0.2 MG/HR PATCH TRANSDERM SCH (08:27)
[2017-09-14] MEDS: MONTELUKAST 10 MG TABLET PO SCH (08:27)
[2017-09-14] MEDS: FUROSEMIDE 40 MG/4 ML VIAL IV SCH ×3 (08:28→20:56)
[2017-09-14] MEDS: NYSTATIN CREAM 15 GM TUBE TOP SCH ×2 (08:29→20:55)
[2017-09-14] MEDS: PANTOPRAZOLE 40 MG VIAL IV SCH ×2 (08:30→20:54)
[2017-09-14] MEDS: ENOXAPARIN 40 MG/0.4 ML SYRINGE SUBCUT SCH (10:36)
[2017-09-14] MEDS: ONDANSETRON 4 MG/2 ML VIAL IV PRN (14:15)
[2017-09-14] MEDS ORDERED: ALUMINUM/MAGNES/SIMETH MAX STR 30 ML UDCUP PO PRN (15:15)
[2017-09-14] MEDS: ATORVASTATIN 20 MG TABLET PO SCH (20:53)
[2017-09-15] MEDS: fentaNYL 100 MCG/2 ML VIAL IV PRN ×4 (00:31→20:35)
[2017-09-15 04:40] LABS: ABG HCO3 29.8 MMOL/L (20-26); ABG Oxygen Saturation 97.5 % (95-100); ABG PCO2 41.5 MM HG (35-48); ABG PO2 95.4 MM HG (80-95); ABG TCO2 27.4 MMOL/L (23-27); Allen Test Positive
[2017-09-15 04:52] LABS: Basophils % 0.6 % (0.0-0.8); Eosinophils # 0.3 10*3/uL (0.0-0.87); Eosinophils % 4.4 % (0.00-10.9); Hematocrit 29.9 VOL% (42.0-52.0); Hemoglobin 9.6 GM/DL (14.0-18.0); Immature Granulocytes % 0.3 %; Immature Granulocytes Absolute 0.02 #; Lymphocytes # 2.1 10*3/uL (1.4-4.0); Lymphocytes % 31.9 % (21.2-54.2); Mean Corpuscular HGB Conc 32.1 GM/DL (32-36); Mean Corpuscular Hemoglobin 27 PG (27-34); Mean Corpuscular Volume 82.8 FL (87-102); Mean Platelet Volume 12.1 FL (9.6-12.0); Monocytes % 15.1 % (1.7-12.7); Neutrophils # 3.1 10*3/uL (1.4-7.4); Neutrophils % 47.7 % (38.7-73.9); Platelet Count 298 T/CUMM (130-400); Red Blood Count 3.61 MC/CUMM (3.8-5.5); Red Cell Distribution Width 17.8 % (9.3-17.3); White Blood Count 6.4 T/CUMM (4-12)
[2017-09-15 05:03] LABS: Calcium 8.5 MG/DL (8.5-10.1); Potassium 3.3 MMOL/L (3.5-5.1)
[2017-09-15] MEDS: INSULIN REGULAR 100 UNIT/ML SUBCUT SCH ×2 (05:40→11:52)
[2017-09-15] MEDS: LEVOTHYROXINE 100 MCG TABLET PO SCH (05:56)
[2017-09-15] MEDS: ALBUTEROL/IPRATROPIUM 3 ML NEB RESP TX SCH ×4 (07:14→19:22)
[2017-09-15] MEDS: PANTOPRAZOLE 40 MG VIAL IV SCH (08:13)
[2017-09-15] MEDS: FUROSEMIDE 40 MG/4 ML VIAL IV SCH ×2 (08:13→15:39)
[2017-09-15] MEDS: CITALOPRAM 20 MG TABLET PO SCH (08:14)
[2017-09-15] MEDS: DOCUSATE SODIUM 100 MG/10 ML UDCUP PO SCH ×2 (08:14→20:13)
[2017-09-15] MEDS: MONTELUKAST 10 MG TABLET PO SCH (08:15)
[2017-09-15] MEDS: METOPROLOL TARTRATE 50 MG TABLET PO SCH ×2 (08:15→20:13)
[2017-09-15] MEDS: ZINC OXIDE PASTE 113 GM TUBE TOP SCH ×2 (08:15→20:12)
[2017-09-15] MEDS: TAMSULOSIN 0.4 MG CAPSULE PO SCH (08:15)
[2017-09-15] MEDS: ASPIRIN 325 MG TABLET PO SCH (08:15)
[2017-09-15] MEDS: NYSTATIN CREAM 15 GM TUBE TOP SCH ×2 (08:15→20:12)
[2017-09-15] MEDS: NITROGLYCERIN 0.2 MG/HR PATCH TRANSDERM SCH (08:16)
[2017-09-15] MEDS: ENOXAPARIN 40 MG/0.4 ML SYRINGE SUBCUT SCH (11:42)
[2017-09-15] MEDS: amLODIPine 5 MG TABLET PO SCH (11:42)
[2017-09-15] MEDS: POTASSIUM CHLORIDE RIDER 20 MEQ in PREMIX 1 EACH IV PRN ×3 (12:07→20:13)
[2017-09-15] MEDS: ONDANSETRON 4 MG/2 ML VIAL IV PRN (14:35)
[2017-09-15] MEDS ORDERED: SODIUM CHLOR 0.9% KCL 20 MEQ 20 MEQ/1,000 ML BAG IV SCH (16:00)
[2017-09-15] MEDS: clonazePAM 0.5 MG TABLET PO PRN (20:13)
[2017-09-15] MEDS: ATORVASTATIN 20 MG TABLET PO SCH (20:13)
[2017-09-15] MEDS: POTASSIUM CHLORIDE RIDER 10 MEQ in PREMIX 1 EACH IV PRN (22:41)
[2017-09-16] MEDS: fentaNYL 100 MCG/2 ML VIAL IV PRN ×3 (04:13→11:05)
[2017-09-16 05:29] LABS: Basophils % 0.6 % (0.0-0.8); Eosinophils # 0.3 10*3/uL (0.0-0.87); Eosinophils % 3.9 % (0.00-10.9); Hematocrit 28.8 VOL% (42.0-52.0); Hemoglobin 9.4 GM/DL (14.0-18.0); Immature Granulocytes % 0.3 %; Immature Granulocytes Absolute 0.02 #; Lymphocytes % 28.9 % (21.2-54.2); Mean Corpuscular HGB Conc 32.6 GM/DL (32-36); Mean Corpuscular Hemoglobin 27 PG (27-34); Mean Corpuscular Volume 82.3 FL (87-102); Mean Platelet Volume 12.8 FL (9.6-12.0); Monocytes % 15.2 % (1.7-12.7); Neutrophils # 3.5 10*3/uL (1.4-7.4); Neutrophils % 51.1 % (38.7-73.9); Platelet Count 288 T/CUMM (130-400); Red Cell Distribution Width 17.8 % (9.3-17.3); White Blood Count 6.8 T/CUMM (4-12)
[2017-09-16 06:01] LABS: Albumin 2.1 G/DL (3.4-5.0); Bilirubin,Direct 0.16 MG/DL (0.0-0.20); Bilirubin,Indirect 0.2 MG/DL (0.0-1.0); Bilirubin,Total 0.4 MG/DL (0.2-1.0); Calcium 8.2 MG/DL (8.5-10.1); Osmolality,Calculated 293.3 MOS/KG (273-304); Potassium 3.5 MMOL/L (3.5-5.1); Total Protein 7.7 G/DL (6.4-8.3)
[2017-09-16] MEDS: LEVOTHYROXINE 100 MCG TABLET PO SCH (06:03)
[2017-09-16] MEDS: ALBUTEROL/IPRATROPIUM 3 ML NEB RESP TX SCH ×4 (07:20→19:36)
[2017-09-16] MEDS: NYSTATIN CREAM 15 GM TUBE TOP SCH ×2 (08:57→20:00)
[2017-09-16] MEDS: ZINC OXIDE PASTE 113 GM TUBE TOP SCH ×2 (08:57→20:00)
[2017-09-16] MEDS: ISOSORBIDE MONONITRATE 30 MG TABLET PO SCH (09:22)
[2017-09-16] MEDS: ASPIRIN 325 MG TABLET PO SCH (09:22)
[2017-09-16] MEDS: FUROSEMIDE 40 MG TABLET PO SCH (09:22)
[2017-09-16] MEDS: MONTELUKAST 10 MG TABLET PO SCH (09:22)
[2017-09-16] MEDS: DOCUSATE SODIUM 100 MG/10 ML UDCUP PO SCH ×2 (09:22→20:00)
[2017-09-16] MEDS: amLODIPine 5 MG TABLET PO SCH (09:22)
[2017-09-16] MEDS: CITALOPRAM 20 MG TABLET PO SCH (09:22)
[2017-09-16] MEDS: TAMSULOSIN 0.4 MG CAPSULE PO SCH (09:22)
[2017-09-16] MEDS: PANTOPRAZOLE 40 MG TABLET PO SCH (09:22)
[2017-09-16] MEDS: METOPROLOL TARTRATE 50 MG TABLET PO SCH ×2 (09:22→20:00)
[2017-09-16] MEDS: POTASSIUM CHLORIDE RIDER 20 MEQ in PREMIX 1 EACH IV PRN (09:25)
[2017-09-16] MEDS: MAGNESIUM SULF RIDER 2 GM in PREMIX 1 EACH IV PRN (09:26)
[2017-09-16] MEDS: ENOXAPARIN 40 MG/0.4 ML SYRINGE SUBCUT SCH (11:02)
[2017-09-16] MEDS: POTASSIUM CHLORIDE RIDER 10 MEQ in PREMIX 1 EACH IV PRN (11:33)
[2017-09-16] MEDS: ATORVASTATIN 20 MG TABLET PO SCH (20:00)
[2017-09-16] MEDS: clonazePAM 0.5 MG TABLET PO PRN (20:00)
[2017-09-17] MEDS: fentaNYL 100 MCG/2 ML VIAL IV PRN ×2 (04:26→06:10)
[2017-09-17 05:57] LABS: Basophils % 0.6 % (0.0-0.8); Eosinophils # 0.2 10*3/uL (0.0-0.87); Eosinophils % 2.9 % (0.00-10.9); Hematocrit 28.3 VOL% (42.0-52.0); Hemoglobin 9.3 GM/DL (14.0-18.0); Immature Granulocytes % 0.3 %; Immature Granulocytes Absolute 0.02 #; Lymphocytes # 2.1 10*3/uL (1.4-4.0); Lymphocytes % 31.7 % (21.2-54.2); Mean Corpuscular HGB Conc 32.9 GM/DL (32-36); Mean Corpuscular Hemoglobin 27 PG (27-34); Mean Corpuscular Volume 82.3 FL (87-102); Mean Platelet Volume 12.8 FL (9.6-12.0); Monocytes # 1.1 10*3/uL (0.11-0.8); Monocytes % 16.3 % (1.7-12.7); Neutrophils # 3.1 10*3/uL (1.4-7.4); Neutrophils % 48.2 % (38.7-73.9); Platelet Count 284 T/CUMM (130-400); Red Blood Count 3.44 MC/CUMM (3.8-5.5); Red Cell Distribution Width 18.3 % (9.3-17.3); White Blood Count 6.5 T/CUMM (4-12)
[2017-09-17 06:13] LABS: Calcium 8.5 MG/DL (8.5-10.1); Osmolality,Calculated 293.1 MOS/KG (273-304); Potassium 3.9 MMOL/L (3.5-5.1)
[2017-09-17 06:26] VITALS: BP 157/61
[2017-09-17] MEDS: LEVOTHYROXINE 100 MCG TABLET PO SCH (06:29)
[2017-09-17 06:31] LABS: Eosinophils 8 % (0-10); Hypochromasia 1+; Lymphocytes 21 % (20-55); Platelet Estimate Adequate; Segmented Neutrophils 54 % (50-85); Total Cells Counted 100
[2017-09-17] MEDS: ALBUTEROL/IPRATROPIUM 3 ML NEB RESP TX SCH ×3 (07:00→14:07)
[2017-09-17] MEDS: DOCUSATE SODIUM 100 MG/10 ML UDCUP PO SCH (08:08)
[2017-09-17] MEDS: ZINC OXIDE PASTE 113 GM TUBE TOP SCH (08:08)
[2017-09-17] MEDS: NYSTATIN CREAM 15 GM TUBE TOP SCH (08:08)
[2017-09-17] MEDS: MONTELUKAST 10 MG TABLET PO SCH (08:09)
[2017-09-17] MEDS: CITALOPRAM 20 MG TABLET PO SCH (08:10)
[2017-09-17] MEDS: METOPROLOL TARTRATE 50 MG TABLET PO SCH (08:10)
[2017-09-17] MEDS: amLODIPine 5 MG TABLET PO SCH (08:10)
[2017-09-17] MEDS: FUROSEMIDE 40 MG TABLET PO SCH (08:10)
[2017-09-17] MEDS: ASPIRIN 325 MG TABLET PO SCH (08:10)
[2017-09-17] MEDS: TAMSULOSIN 0.4 MG CAPSULE PO SCH (08:10)
[2017-09-17] MEDS: PANTOPRAZOLE 40 MG TABLET PO SCH (08:10)
[2017-09-17] MEDS: ISOSORBIDE MONONITRATE 30 MG TABLET PO SCH (08:10)
[2017-09-17] MEDS ORDERED: amLODIPine 10 MG TABLET PO SCH (08:17)
[2017-09-17] MEDS ORDERED: amLODIPine 5 MG TABLET PO ONE (08:24)
[2017-09-17] MEDS: POTASSIUM CHLORIDE RIDER 20 MEQ in PREMIX 1 EACH IV PRN (08:35)
[2017-09-17] MEDS ORDERED: hydrALAZINE 25 MG TABLET PO SCH (09:00)
[2017-09-17 10:06] LABS: Amorphous Crystals,Urine Occasional /HPF (Few); Apearance,Urine Slightly Hazy (Clear); Bilirubin,Urine Negative (Negative); Blood, Urine Large mg/dL (Negative); Glucose,Urine (UA) Negative (Negative); Ketones,Urine Negative (Negative); Nitrite,Urine Negative (Negative); Protein,Urine 30 MG/DL; RBC,Urine 140 /HPF (0-4); Squamous Epithelial Cell,Urine Occasional /HPF (0-10); Urine Color Yellow (Yellow); Urine Specific Gravity 1.018 (1.001-1.035); Urine Urobilinogen < 2.0 EU/DL (0.2-1.0); WBC,Urine 4 /HPF (0-6)
[2017-09-17] MEDS ORDERED: traMADol 50 MG TABLET PO PRN (10:33)
[2017-09-17] MEDS: ENOXAPARIN 40 MG/0.4 ML SYRINGE SUBCUT SCH (11:00)
== END 2017-09-17 15:45 | DRG 329 ==
LOC: N.OR 05:57 → N.SDSINP 06:09 → N.3E 10:48 → N.CC 08-29 20:02
PROVIDERS: ADMIT Surgery; ATTEND Surgery

== ENCOUNTER 2017-11-08 10:33 | Inpatient (IN) ==
[2017-11-08 11:48] LABS: Basophils # 0.1 10*3/uL (0.0-0.2); Basophils % 0.5 % (0.0-0.8); Eosinophils # 0.2 10*3/uL (0.0-0.87); Eosinophils % 1.7 % (0.00-10.9); Hematocrit 33.5 VOL% (42.0-52.0); Hemoglobin 11.5 GM/DL (14.0-18.0); Immature Granulocytes % 4.5 %; Immature Granulocytes Absolute 0.62 #; Lymphocytes # 2.6 10*3/uL (1.4-4.0); Lymphocytes % 18.5 % (21.2-54.2); Mean Corpuscular HGB Conc 34.3 GM/DL (32-36); Mean Corpuscular Hemoglobin 29 PG (27-34); Mean Corpuscular Volume 84.8 FL (87-102); Mean Platelet Volume 10.6 FL (9.6-12.0); Monocytes % 7.5 % (1.7-12.7); Neutrophils # 9.4 10*3/uL (1.4-7.4); Neutrophils % 67.3 % (38.7-73.9); Platelet Count 561 T/CUMM (130-400); Red Blood Count 3.95 MC/CUMM (3.8-5.5); Red Cell Distribution Width 14.6 % (9.3-17.3); White Blood Count 13.9 T/CUMM (4-12)
[2017-11-08 12:06] LABS: Alanine Aminotransferase 35 U/L (16-61); Albumin 2.9 G/DL (3.4-5.0); Alkaline Phosphatase 64 U/L (45-117); Aspartate Amino Transferase 42 U/L (0-37); Bilirubin,Total < 0.39 MG/DL (0.2-1.0); Blood Urea Nitrogen 54 MG/DL (7-18); Calcium 9.5 MG/DL (8.5-10.1); Glucose 139 MG/DL (74-106); Osmolality,Calculated 269.4 MOS/KG (273-304); Potassium 5.2 MMOL/L (3.5-5.1); Sodium 126 MMOL/L (136-145); Total Protein 8.7 G/DL (6.4-8.3)
[2017-11-08 12:17] LABS: Troponin I 0.032 NG/ML (0.00-0.045)
[2017-11-08 12:52] LABS: Lymphocytes 13 % (20-55); Platelet Estimate Increased; Segmented Neutrophils 81 % (50-85); Total Cells Counted 100
[2017-11-08 12:53] LABS: Hypochromasia Slight; Microcytosis Slight
[2017-11-09 06:37] LABS: Basophils # 0.1 10*3/uL (0.0-0.2); Basophils % 0.6 % (0.0-0.8); Eosinophils # 0.4 10*3/uL (0.0-0.87); Eosinophils % 3.7 % (0.00-10.9); Hematocrit 33.1 VOL% (42.0-52.0); Hemoglobin 11.2 GM/DL (14.0-18.0); Immature Granulocytes % 1.6 %; Immature Granulocytes Absolute 0.19 #; Lymphocytes # 3.5 10*3/uL (1.4-4.0); Lymphocytes % 29.5 % (21.2-54.2); Mean Corpuscular HGB Conc 33.8 GM/DL (32-36); Mean Corpuscular Hemoglobin 29 PG (27-34); Mean Platelet Volume 10.5 FL (9.6-12.0); Monocytes # 0.9 10*3/uL (0.11-0.8); Monocytes % 7.3 % (1.7-12.7); Neutrophils # 6.8 10*3/uL (1.4-7.4); Neutrophils % 57.3 % (38.7-73.9); Platelet Count 500 T/CUMM (130-400); Red Blood Count 3.85 MC/CUMM (3.8-5.5); Red Cell Distribution Width 14.6 % (9.3-17.3); White Blood Count 11.8 T/CUMM (4-12)
[2017-11-09 07:04] LABS: Alanine Aminotransferase 31 U/L (16-61); Albumin 2.9 G/DL (3.4-5.0); Alkaline Phosphatase 62 U/L (45-117); Aspartate Amino Transferase 39 U/L (0-37); Bilirubin,Total < 0.39 MG/DL (0.2-1.0); Blood Urea Nitrogen 61 MG/DL (7-18); Calcium 9.8 MG/DL (8.5-10.1); Glucose 121 MG/DL (74-106); Osmolality,Calculated 268.5 MOS/KG (273-304); Potassium 4.1 MMOL/L (3.5-5.1); Sodium 125 MMOL/L (136-145); Total Protein 8.4 G/DL (6.4-8.3)
[2017-11-09 13:13] LABS: Apearance,Urine CLOUDY (Clear); Bacteria,Urine Occasional /HPF (Few); Bilirubin,Urine Negative (Negative); Blood, Urine Negative (Negative); Glucose,Urine (UA) Negative (Negative); Ketones,Urine Negative (Negative); Nitrite,Urine Negative (Negative); Protein,Urine Negative; Urine Color Yellow (Yellow); Urine Specific Gravity 1.011 (1.001-1.035); Urine Urobilinogen < 2.0 EU/DL (0.2-1.0); WBC,Urine 306 /HPF (0-6)
[2017-11-10 07:00] LABS: Calcium 9.5 MG/DL (8.5-10.1); Osmolality,Calculated 272.2 MOS/KG (273-304); Potassium 4.8 MMOL/L (3.5-5.1)
[2017-11-11 06:47] LABS: Calcium 9.8 MG/DL (8.5-10.1); Osmolality,Calculated 273.2 MOS/KG (273-304); Potassium 4.9 MMOL/L (3.5-5.1); Prealbumin 46.7 MG/DL (20-40)
[2017-11-13 06:15] LABS: Basophils # 0.1 10*3/uL (0.0-0.2); Basophils % 0.5 % (0.0-0.8); Eosinophils # 0.3 10*3/uL (0.0-0.87); Eosinophils % 3.3 % (0.00-10.9); Hematocrit 28.7 VOL% (42.0-52.0); Hemoglobin 9.6 GM/DL (14.0-18.0); Immature Granulocytes % 0.8 %; Immature Granulocytes Absolute 0.08 #; Lymphocytes # 2.6 10*3/uL (1.4-4.0); Lymphocytes % 25.7 % (21.2-54.2); Mean Corpuscular HGB Conc 33.4 GM/DL (32-36); Mean Corpuscular Hemoglobin 29 PG (27-34); Mean Corpuscular Volume 87.2 FL (87-102); Mean Platelet Volume 10.5 FL (9.6-12.0); Monocytes % 9.8 % (1.7-12.7); Neutrophils # 6.1 10*3/uL (1.4-7.4); Neutrophils % 59.9 % (38.7-73.9); Platelet Count 402 T/CUMM (130-400); Red Blood Count 3.29 MC/CUMM (3.8-5.5); Red Cell Distribution Width 14.8 % (9.3-17.3); White Blood Count 10.2 T/CUMM (4-12)
[2017-11-13 06:23] LABS: Calcium 8.7 MG/DL (8.5-10.1); Osmolality,Calculated 282.4 MOS/KG (273-304); Potassium 3.6 MMOL/L (3.5-5.1)
[2017-11-14 06:32] LABS: Calcium 8.6 MG/DL (8.5-10.1); Osmolality,Calculated 283.7 MOS/KG (273-304); Prealbumin 29.8 MG/DL (20-40)
[2017-11-16 04:54] LABS: Basophils # 0.1 10*3/uL (0.0-0.2); Basophils % 0.5 % (0.0-0.8); Eosinophils # 0.5 10*3/uL (0.0-0.87); Eosinophils % 5.2 % (0.00-10.9); Hematocrit 27.7 VOL% (42.0-52.0); Hemoglobin 9.3 GM/DL (14.0-18.0); Immature Granulocytes % 0.6 %; Immature Granulocytes Absolute 0.06 #; Lymphocytes # 3.2 10*3/uL (1.4-4.0); Lymphocytes % 32.5 % (21.2-54.2); Mean Corpuscular HGB Conc 33.6 GM/DL (32-36); Mean Corpuscular Hemoglobin 29 PG (27-34); Mean Corpuscular Volume 87.7 FL (87-102); Mean Platelet Volume 10.6 FL (9.6-12.0); Monocytes # 0.8 10*3/uL (0.11-0.8); Monocytes % 7.8 % (1.7-12.7); Neutrophils # 5.3 10*3/uL (1.4-7.4); Neutrophils % 53.4 % (38.7-73.9); Platelet Count 381 T/CUMM (130-400); Red Blood Count 3.16 MC/CUMM (3.8-5.5); Red Cell Distribution Width 15.2 % (9.3-17.3); White Blood Count 9.9 T/CUMM (4-12)
[2017-11-16 05:41] LABS: Calcium 8.5 MG/DL (8.5-10.1); Osmolality,Calculated 277.7 MOS/KG (273-304)
[2017-11-17 04:53] LABS: Basophils % 0.3 % (0.0-0.8); Eosinophils # 0.5 10*3/uL (0.0-0.87); Eosinophils % 5.7 % (0.00-10.9); Hematocrit 28.1 VOL% (42.0-52.0); Hemoglobin 9.3 GM/DL (14.0-18.0); Immature Granulocytes % 0.3 %; Immature Granulocytes Absolute 0.03 #; Lymphocytes # 2.9 10*3/uL (1.4-4.0); Lymphocytes % 33.2 % (21.2-54.2); Mean Corpuscular HGB Conc 33.1 GM/DL (32-36); Mean Corpuscular Hemoglobin 29 PG (27-34); Mean Corpuscular Volume 88.6 FL (87-102); Mean Platelet Volume 10.7 FL (9.6-12.0); Monocytes # 0.7 10*3/uL (0.11-0.8); Monocytes % 7.5 % (1.7-12.7); Neutrophils # 4.6 10*3/uL (1.4-7.4); Platelet Count 339 T/CUMM (130-400); Red Blood Count 3.17 MC/CUMM (3.8-5.5); Red Cell Distribution Width 15.4 % (9.3-17.3); White Blood Count 8.7 T/CUMM (4-12)
[2017-11-17 05:15] LABS: Calcium 8.9 MG/DL (8.5-10.1); Osmolality,Calculated 278.5 MOS/KG (273-304); Potassium 4.8 MMOL/L (3.5-5.1)
[2017-11-18 04:46] LABS: Basophils # 0.1 10*3/uL (0.0-0.2); Basophils % 0.7 % (0.0-0.8); Eosinophils # 0.6 10*3/uL (0.0-0.87); Eosinophils % 6.6 % (0.00-10.9); Hematocrit 30.2 VOL% (42.0-52.0); Hemoglobin 9.8 GM/DL (14.0-18.0); Immature Granulocytes % 0.5 %; Immature Granulocytes Absolute 0.04 #; Lymphocytes # 2.6 10*3/uL (1.4-4.0); Lymphocytes % 29.4 % (21.2-54.2); Mean Corpuscular HGB Conc 32.5 GM/DL (32-36); Mean Corpuscular Hemoglobin 30 PG (27-34); Mean Platelet Volume 10.4 FL (9.6-12.0); Monocytes # 0.8 10*3/uL (0.11-0.8); Monocytes % 9.5 % (1.7-12.7); Neutrophils # 4.6 10*3/uL (1.4-7.4); Neutrophils % 53.3 % (38.7-73.9); Platelet Count 313 T/CUMM (130-400); Red Blood Count 3.32 MC/CUMM (3.8-5.5); Red Cell Distribution Width 15.3 % (9.3-17.3); White Blood Count 8.7 T/CUMM (4-12)
[2017-11-18 05:23] LABS: Calcium 8.7 MG/DL (8.5-10.1); Osmolality,Calculated 275.8 MOS/KG (273-304); Potassium 4.3 MMOL/L (3.5-5.1); Potassium 4.7 MMOL/L (3.5-5.1)
[2017-11-19 05:41] LABS: Calcium 8.6 MG/DL (8.5-10.1); Potassium 4.1 MMOL/L (3.5-5.1)
[2017-11-19 11:54] VITALS: BP 121/58
[2017-11-19 15:45] LABS: Collection duration of stool Random h; Total Weight of Stool 35 g
[2017-11-19 22:06] LABS: Adenovirus F40/41 Negative (Negative); Astrovirus Negative (Negative); Cryptosporidium species Negative (Negative); Cyclospora cayetanensis Negative (Negative); Entamoeba histolytica Negative (Negative); Enteropathogenic E.coli (EPEC) Negative (Negative); Enterotoxigenic E. coli (ETEC) Negative (Negative); Norovirus GI/GII Negative (Negative); Plesiomonas shigelloides Negative (Negative); Salmonella species Negative (Negative); Sapovirus Negative (Negative); Shiga toxin producing E. coli Negative (Negative); Shigella/Enteroinvasive E.coli Negative (Negative); Specimen Source STOOL; Vibrio cholerae Negative (Negative); Yersinia enterocolitica Negative (Negative)
[2017-11-20 16:32] LABS: Chloride, F 128 mmol/L; Magnesium, F 30 mg/dL; Osmolality, F 311 mOsm/kg; Osmotic Gap, F 40 mOsm/kg; Potassium, F 6 mmol/L; Sodium, F 119 mmol/L
== END 2017-11-19 15:50 | disposition swing bed (61) | DRG 392 ==
LOC: N.ED 10:33 → SUATTDRO 14:38 → N.EDINP 14:38 → N.TELEN 16:57
PROVIDERS: ADMIT Internal Medicine; ATTEND Internal Medicine

== ENCOUNTER 2019-01-19 14:43 | Inpatient (IN) ==
[2019-01-19] MEDS ORDERED: SODIUM CHLORIDE 0.9% 500 ML IV STA (15:20)
[2019-01-19] MEDS ORDERED: ONDANSETRON 4 MG/2 ML VIAL IV STA (15:20)
[2019-01-19 15:57] LABS: Basophils # 0.1 10*3/uL (0.0-0.2); Basophils % 0.2 % (0.0-0.8); Eosinophils % 0.2 % (0.00-10.9); Hematocrit 31.2 VOL% (42.0-52.0); Hemoglobin 10.3 GM/DL (14.0-18.0); Immature Granulocytes % 0.9 %; Immature Granulocytes Absolute 0.22 #; Lymphocytes # 2.9 10*3/uL (1.4-4.0); Lymphocytes % 12.1 % (21.2-54.2); Mean Corpuscular Volume 97.5 FL (87-102); Mean Platelet Volume 10.3 FL (9.6-12.0); Monocytes % 5.7 % (1.7-12.7); Neutrophils % 80.9 % (38.7-73.9); Platelet Count 352 T/CUMM (130-400); Red Cell Distribution Width 12.5 % (9.3-17.3); White Blood Count 24.1 T/CUMM (4-12)
[2019-01-19 16:16] LABS: Alanine Aminotransferase 25 U/L (16-61); Albumin 3.2 G/DL (3.4-5.0); Alkaline Phosphatase 103 U/L (45-117); Aspartate Amino Transferase 19 U/L (0-37); Bilirubin,Total < 0.39 MG/DL (0.2-1.0); Blood Urea Nitrogen 103 MG/DL (7-18); Calcium 9.2 MG/DL (8.5-10.1); Estimated Glom Filtration Rate 12 ML/MIN; Glucose 108 MG/DL (74-106); Osmolality,Calculated 313.3 MOS/KG (273-304); Total Protein 8.6 G/DL (6.4-8.3)
[2019-01-19 17:24] LABS: Lymphocytes 11 % (20-55); Segmented Neutrophils 86 % (50-85)
[2019-01-19 17:25] LABS: Platelet Estimate Adequate; Total Cells Counted 100
[2019-01-19] MEDS ORDERED: LACTATED RINGERS 2,000 ML IV ONE (18:12)
[2019-01-19 19:56] LABS: Apearance,Urine Slightly Hazy (Clear); Bacteria,Urine Occasional /HPF (Few); Bilirubin,Urine Negative (Negative); Blood, Urine Moderate mg/dL (Negative); Glucose,Urine (UA) Negative (Negative); Hyaline Casts,Urine 1 /LPF (0-3); Ketones,Urine Negative (Negative); Mucus,Urine Occasional /LPF (Occasional); Nitrite,Urine Negative (Negative); Protein,Urine 30 MG/DL; RBC,Urine 2 /HPF (0-4); Urine Color Yellow (Yellow); Urine Specific Gravity 1.012 (1.001-1.035); Urine Urobilinogen < 2.0 EU/DL (0.2-1.0); WBC,Urine 3 /HPF (0-6)
[2019-01-19] MEDS ORDERED: PROMETHAZINE 25 MG/1 ML VIAL IM PRN (21:26)
[2019-01-19] MEDS: LACTATED RINGERS 1,000 ML IV SCH (21:48)
[2019-01-19] MEDS: ONDANSETRON 4 MG/2 ML VIAL IV PRN (21:48)
[2019-01-19] MEDS: MORPHINE 4 MG/1 ML VIAL IV PRN (21:53)
[2019-01-20] MEDS: ONDANSETRON 4 MG/2 ML VIAL IV PRN ×2 (02:16→06:22)
[2019-01-20] MEDS: MORPHINE 4 MG/1 ML VIAL IV PRN ×2 (02:19→06:24)
[2019-01-20 04:45] LABS: Basophils # 0.1 10*3/uL (0.0-0.2); Basophils % 0.2 % (0.0-0.8); Eosinophils # 0.1 10*3/uL (0.0-0.87); Eosinophils % 0.5 % (0.00-10.9); Hematocrit 26.2 VOL% (42.0-52.0); Hemoglobin 8.8 GM/DL (14.0-18.0); Immature Granulocytes % 0.7 %; Immature Granulocytes Absolute 0.15 #; Lymphocytes % 14.4 % (21.2-54.2); Mean Corpuscular HGB Conc 33.6 GM/DL (32-36); Mean Corpuscular Volume 95.6 FL (87-102); Mean Platelet Volume 11.1 FL (9.6-12.0); Monocytes % 5.6 % (1.7-12.7); Neutrophils % 78.6 % (38.7-73.9); Platelet Count 301 T/CUMM (130-400); Red Blood Count 2.74 MC/CUMM (3.8-5.5); Red Cell Distribution Width 12.5 % (9.3-17.3); White Blood Count 20.9 T/CUMM (4-12)
[2019-01-20 05:14] LABS: Calcium 8.5 MG/DL (8.5-10.1)
[2019-01-20 05:25] LABS: Eosinophils 1 % (0-10); Hypochromasia 1+; Lymphocytes 10 % (20-55); Platelet Estimate Adequate; Segmented Neutrophils 84 % (50-85); Total Cells Counted 100
[2019-01-20] MEDS: LACTATED RINGERS 1,000 ML IV SCH ×2 (06:22→14:46)
[2019-01-20] MEDS: LEVOTHYROXINE 100 MCG TABLET PO SCH (06:24)
[2019-01-20] MEDS ORDERED: MAGNESIUM SULF RIDER 2 GM in PREMIX 1 EACH IV ONE (10:30)
[2019-01-20] MEDS ORDERED: DEXTROSE 5% IV SCH (16:00)
[2019-01-20] MEDS ORDERED: POTASSIUM CHLORIDE RIDER IV SCH (16:00)
[2019-01-20] MEDS ORDERED: SODIUM BICARB IV SCH (16:00)
[2019-01-20] MEDS: DEXTROSE 5% IV SCH (17:16)
[2019-01-20] MEDS: POTASSIUM CHLORIDE IV SCH (17:16)
[2019-01-20] MEDS: SODIUM BICARB IV SCH (17:16)
[2019-01-21] MEDS: POTASSIUM CHLORIDE IV SCH ×3 (03:00→13:09)
[2019-01-21] MEDS: SODIUM BICARB IV SCH ×3 (03:00→13:09)
[2019-01-21] MEDS: DEXTROSE 5% IV SCH ×3 (03:00→13:09)
[2019-01-21] MEDS: MORPHINE 4 MG/1 ML VIAL IV PRN ×3 (03:57→21:38)
[2019-01-21 06:23] LABS: Basophils % 0.3 % (0.0-0.8); Eosinophils # 0.1 10*3/uL (0.0-0.87); Eosinophils % 0.7 % (0.00-10.9); Hematocrit 24.2 VOL% (42.0-52.0); Hemoglobin 8.5 GM/DL (14.0-18.0); Immature Granulocytes % 0.6 %; Immature Granulocytes Absolute 0.08 #; Lymphocytes # 2.5 10*3/uL (1.4-4.0); Lymphocytes % 18.4 % (21.2-54.2); Mean Corpuscular HGB Conc 35.1 GM/DL (32-36); Mean Platelet Volume 11.2 FL (9.6-12.0); Monocytes % 6.6 % (1.7-12.7); Neutrophils % 73.4 % (38.7-73.9); Platelet Count 267 T/CUMM (130-400); Red Blood Count 2.63 MC/CUMM (3.8-5.5); Red Cell Distribution Width 11.9 % (9.3-17.3); White Blood Count 13.8 T/CUMM (4-12)
[2019-01-21] MEDS: LEVOTHYROXINE 100 MCG TABLET PO SCH (06:36)
[2019-01-21 06:53] LABS: Calcium 8.1 MG/DL (8.5-10.1); Osmolality,Calculated 309.5 MOS/KG (273-304)
[2019-01-21] MEDS ORDERED: SODIUM CHLORIDE 0.9% 500 ML IV SCH (07:00)
[2019-01-21] MEDS: POTASSIUM CHLORIDE RIDER 10 MEQ in PREMIX 1 EACH IV PRN ×6 (08:51→14:29)
[2019-01-21] MEDS ORDERED: MAGNESIUM OXIDE 400 MG TABLET PO ONE (11:00)
[2019-01-21] MEDS ORDERED: WHEAT DEXTRIN POWDER 244 GM BOTTLE PEG SCH (15:00)
[2019-01-21] MEDS: ONDANSETRON 4 MG/2 ML VIAL IV PRN ×2 (17:22→21:33)
[2019-01-21] MEDS: WHEAT DEXTRIN POWDER 244 GM BOTTLE PEG SCH (21:33)
[2019-01-22] MEDS: POTASSIUM CHLORIDE IV SCH ×3 (01:42→15:18)
[2019-01-22] MEDS: SODIUM BICARB IV SCH ×3 (01:42→15:18)
[2019-01-22] MEDS: DEXTROSE 5% IV SCH ×2 (01:42→10:23)
[2019-01-22] MEDS: MORPHINE 4 MG/1 ML VIAL IV PRN ×3 (01:42→19:34)
[2019-01-22] MEDS: ONDANSETRON 4 MG/2 ML VIAL IV PRN ×5 (01:43→19:30)
[2019-01-22] MEDS: LEVOTHYROXINE 100 MCG TABLET PO SCH (06:00)
[2019-01-22 06:07] LABS: Basophils % 0.2 % (0.0-0.8); Eosinophils # 0.1 10*3/uL (0.0-0.87); Hematocrit 22.1 VOL% (42.0-52.0); Hemoglobin 7.9 GM/DL (14.0-18.0); Immature Granulocytes % 0.4 %; Immature Granulocytes Absolute 0.06 #; Lymphocytes # 2.5 10*3/uL (1.4-4.0); Lymphocytes % 18.3 % (21.2-54.2); Mean Corpuscular HGB Conc 35.7 GM/DL (32-36); Mean Corpuscular Volume 90.6 FL (87-102); Mean Platelet Volume 11.6 FL (9.6-12.0); Monocytes % 7.8 % (1.7-12.7); Neutrophils % 72.3 % (38.7-73.9); Platelet Count 279 T/CUMM (130-400); Red Blood Count 2.44 MC/CUMM (3.8-5.5); Red Cell Distribution Width 11.9 % (9.3-17.3); White Blood Count 13.8 T/CUMM (4-12)
[2019-01-22 07:29] LABS: Calcium 8.2 MG/DL (8.5-10.1); Osmolality,Calculated 308.1 MOS/KG (273-304)
[2019-01-22] MEDS: POTASSIUM CHLORIDE RIDER 10 MEQ in PREMIX 1 EACH IV PRN ×3 (08:22→16:11)
[2019-01-22] MEDS ORDERED: POTASSIUM CHLORIDE 20 MEQ/15 ML UDCUP PER TUBE ONE (08:51)
[2019-01-22] MEDS ORDERED: PROPOFOL 200 MG/20 ML VIAL IV ONE (09:00)
[2019-01-22] MEDS ORDERED: LIDOCAINE 100 MG/5 ML SYRINGE ONE (09:00)
[2019-01-22] MEDS: WHEAT DEXTRIN POWDER 244 GM BOTTLE PEG SCH ×2 (10:23→20:27)
[2019-01-22] MEDS ORDERED: ONDANSETRON 4 MG/2 ML VIAL ONE (10:52)
[2019-01-22] MEDS ORDERED: PANTOPRAZOLE 40 MG VIAL IV SCH (12:00)
[2019-01-22] MEDS: SODIUM CHLORIDE 0.9% 500 ML IV SCH (13:34)
[2019-01-22] MEDS: MAGNESIUM SULF IV SCH (15:18)
[2019-01-22] MEDS: [UNRECOGNIZED DRUG - OTHER] IV SCH (15:18)
[2019-01-22] MEDS: PANTOPRAZOLE 40 MG VIAL IV SCH (20:27)
[2019-01-23] MEDS: MORPHINE 4 MG/1 ML VIAL IV PRN ×3 (00:04→20:37)
[2019-01-23] MEDS: ONDANSETRON 4 MG/2 ML VIAL IV PRN ×2 (00:06→04:42)
[2019-01-23] MEDS: [UNRECOGNIZED DRUG - OTHER] IV SCH ×2 (05:35→13:28)
[2019-01-23] MEDS: LEVOTHYROXINE 100 MCG TABLET PO SCH (05:35)
[2019-01-23] MEDS: MAGNESIUM SULF IV SCH ×2 (05:35→13:28)
[2019-01-23] MEDS: SODIUM BICARB IV SCH ×2 (05:35→13:28)
[2019-01-23] MEDS: POTASSIUM CHLORIDE IV SCH ×2 (05:35→13:28)
[2019-01-23] MEDS: PANTOPRAZOLE 40 MG VIAL IV SCH ×2 (09:46→20:38)
[2019-01-23] MEDS: WHEAT DEXTRIN POWDER 244 GM BOTTLE PEG SCH (09:46)
[2019-01-23 10:01] LABS: Basophils % 0.1 % (0.0-0.8); Eosinophils # 0.2 10*3/uL (0.0-0.87); Hematocrit 22.9 VOL% (42.0-52.0); Immature Granulocytes % 0.5 %; Immature Granulocytes Absolute 0.07 #; Lymphocytes # 2.1 10*3/uL (1.4-4.0); Lymphocytes % 14.6 % (21.2-54.2); Mean Corpuscular HGB Conc 34.9 GM/DL (32-36); Mean Corpuscular Volume 94.6 FL (87-102); Mean Platelet Volume 11.8 FL (9.6-12.0); Monocytes % 7.4 % (1.7-12.7); Neutrophils % 76.4 % (38.7-73.9); Platelet Count 252 T/CUMM (130-400); Red Blood Count 2.42 MC/CUMM (3.8-5.5); Red Cell Distribution Width 12.2 % (9.3-17.3); White Blood Count 14.6 T/CUMM (4-12)
[2019-01-23] MEDS ORDERED: ACETAMINOPHEN 325 MG TABLET PO ONE (12:50)
[2019-01-23] MEDS ORDERED: diphenhydrAMINE CAP 25 MG CAPSULE PO ONE (12:51)
[2019-01-23 12:52] LABS: Osmolality,Calculated 297.4 MOS/KG (273-304)
[2019-01-23] MEDS ORDERED: SODIUM CHLORIDE 0.9% 1,000 ML IV PRN (13:38)
[2019-01-23] MEDS: SODIUM CHLORIDE 0.9% 500 ML IV SCH (13:38)
[2019-01-23] MEDS: ENOXAPARIN 30 MG/0.3 ML SYRINGE SUBCUT SCH (17:42)
[2019-01-24] MEDS: SODIUM BICARB IV SCH ×4 (02:06→23:03)
[2019-01-24] MEDS: [UNRECOGNIZED DRUG - OTHER] IV SCH ×4 (02:06→23:03)
[2019-01-24] MEDS: WHEAT DEXTRIN POWDER 244 GM BOTTLE PEG SCH ×3 (02:06→23:02)
[2019-01-24] MEDS: POTASSIUM CHLORIDE IV SCH ×4 (02:06→23:03)
[2019-01-24] MEDS: MAGNESIUM SULF IV SCH ×4 (02:06→23:03)
[2019-01-24 05:50] LABS: Basophils % 0.3 % (0.0-0.8); Eosinophils # 0.3 10*3/uL (0.0-0.87); Eosinophils % 2.3 % (0.00-10.9); Hemoglobin 9.2 GM/DL (14.0-18.0); Immature Granulocytes % 0.6 %; Immature Granulocytes Absolute 0.06 #; Lymphocytes # 2.3 10*3/uL (1.4-4.0); Lymphocytes % 21.4 % (21.2-54.2); Mean Corpuscular HGB Conc 34.1 GM/DL (32-36); Mean Corpuscular Volume 93.1 FL (87-102); Mean Platelet Volume 11.5 FL (9.6-12.0); Monocytes % 10.1 % (1.7-12.7); Neutrophils % 65.3 % (38.7-73.9); Platelet Count 242 T/CUMM (130-400); White Blood Count 10.7 T/CUMM (4-12)
[2019-01-24 06:07] LABS: Calcium 7.9 MG/DL (8.5-10.1); Osmolality,Calculated 294.4 MOS/KG (273-304)
[2019-01-24] MEDS: LEVOTHYROXINE 100 MCG TABLET PO SCH (06:23)
[2019-01-24] MEDS: PANTOPRAZOLE 40 MG VIAL IV SCH ×2 (08:27→23:04)
[2019-01-24] MEDS: ONDANSETRON 4 MG/2 ML VIAL IV PRN ×2 (08:36→23:48)
[2019-01-24] MEDS: MORPHINE 4 MG/1 ML VIAL IV PRN ×2 (08:36→17:39)
[2019-01-24] MEDS: ENOXAPARIN 30 MG/0.3 ML SYRINGE SUBCUT SCH (15:22)
[2019-01-24] MEDS: traMADol 50 MG TABLET PO PRN (23:04)
[2019-01-25] MEDS: LEVOTHYROXINE 100 MCG TABLET PO SCH (06:58)
[2019-01-25] MEDS: traMADol 50 MG TABLET PO PRN ×2 (08:31→16:51)
[2019-01-25] MEDS: PANTOPRAZOLE 40 MG VIAL IV SCH ×2 (08:31→21:42)
[2019-01-25] MEDS: WHEAT DEXTRIN POWDER 244 GM BOTTLE PEG SCH ×2 (08:32→21:42)
[2019-01-25] MEDS: POTASSIUM CHLORIDE IV SCH ×2 (08:32→19:16)
[2019-01-25] MEDS: MAGNESIUM SULF IV SCH ×2 (08:32→19:16)
[2019-01-25] MEDS: [UNRECOGNIZED DRUG - OTHER] IV SCH ×2 (08:32→19:16)
[2019-01-25] MEDS: SODIUM BICARB IV SCH ×2 (08:32→19:16)
[2019-01-25] MEDS: ENOXAPARIN 30 MG/0.3 ML SYRINGE SUBCUT SCH (13:10)
[2019-01-26] MEDS: POTASSIUM CHLORIDE IV SCH ×4 (01:46→15:41)
[2019-01-26] MEDS: [UNRECOGNIZED DRUG - OTHER] IV SCH ×3 (01:46→15:12)
[2019-01-26] MEDS: SODIUM BICARB IV SCH ×3 (01:46→15:12)
[2019-01-26] MEDS: MAGNESIUM SULF IV SCH ×4 (01:46→15:41)
[2019-01-26] MEDS: LEVOTHYROXINE 100 MCG TABLET PO SCH (07:18)
[2019-01-26 07:57] LABS: Basophils % 0.3 % (0.0-0.8); Eosinophils # 0.3 10*3/uL (0.0-0.87); Eosinophils % 2.8 % (0.00-10.9); Hematocrit 29.1 VOL% (42.0-52.0); Hemoglobin 9.6 GM/DL (14.0-18.0); Immature Granulocytes % 0.4 %; Immature Granulocytes Absolute 0.04 #; Lymphocytes # 2.1 10*3/uL (1.4-4.0); Lymphocytes % 19.3 % (21.2-54.2); Mean Corpuscular Volume 96.4 FL (87-102); Mean Platelet Volume 11.4 FL (9.6-12.0); Monocytes % 9.1 % (1.7-12.7); Neutrophils % 68.1 % (38.7-73.9); Platelet Count 276 T/CUMM (130-400); Red Blood Count 3.02 MC/CUMM (3.8-5.5); Red Cell Distribution Width 13.6 % (9.3-17.3)
[2019-01-26 08:14] LABS: Calcium 8.5 MG/DL (8.5-10.1); Osmolality,Calculated 282.8 MOS/KG (273-304)
[2019-01-26 08:18] LABS: Prealbumin 17.5 MG/DL (20-40)
[2019-01-26] MEDS: WHEAT DEXTRIN POWDER 244 GM BOTTLE PEG SCH ×2 (08:42→21:10)
[2019-01-26] MEDS: PANTOPRAZOLE 40 MG VIAL IV SCH ×2 (08:42→21:10)
[2019-01-26] MEDS: ONDANSETRON 4 MG/2 ML VIAL IV PRN (10:13)
[2019-01-26] MEDS: ENOXAPARIN 30 MG/0.3 ML SYRINGE SUBCUT SCH (15:40)
[2019-01-26] MEDS: [UNRECOGNIZED DRUG - OTHER] IV SCH (15:41)
[2019-01-27] MEDS: MAGNESIUM SULF IV SCH ×4 (02:12→21:55)
[2019-01-27] MEDS: POTASSIUM CHLORIDE IV SCH ×4 (02:12→21:55)
[2019-01-27] MEDS: [UNRECOGNIZED DRUG - OTHER] IV SCH ×4 (02:12→21:55)
[2019-01-27 04:53] LABS: Basophils % 0.3 % (0.0-0.8); Eosinophils # 0.3 10*3/uL (0.0-0.87); Eosinophils % 2.7 % (0.00-10.9); Hematocrit 29.1 VOL% (42.0-52.0); Hemoglobin 9.5 GM/DL (14.0-18.0); Immature Granulocytes % 0.5 %; Immature Granulocytes Absolute 0.05 #; Lymphocytes # 2.4 10*3/uL (1.4-4.0); Lymphocytes % 22.8 % (21.2-54.2); Mean Corpuscular HGB Conc 32.6 GM/DL (32-36); Mean Corpuscular Volume 97.7 FL (87-102); Mean Platelet Volume 11.4 FL (9.6-12.0); Neutrophils % 63.7 % (38.7-73.9); Platelet Count 272 T/CUMM (130-400); Red Blood Count 2.98 MC/CUMM (3.8-5.5); Red Cell Distribution Width 13.2 % (9.3-17.3); White Blood Count 10.6 T/CUMM (4-12)
[2019-01-27] MEDS: LEVOTHYROXINE 100 MCG TABLET PO SCH (05:07)
[2019-01-27 05:20] LABS: Albumin 2.3 G/DL (3.4-5.0); Bilirubin,Direct 0.11 MG/DL (0.0-0.20); Bilirubin,Indirect 0.4 MG/DL (0.0-1.0); Bilirubin,Total 0.5 MG/DL (0.2-1.0); Calcium 8.8 MG/DL (8.5-10.1); Risk Ratio 3.55; Total Protein 6.2 G/DL (6.4-8.3)
[2019-01-27] MEDS: PANTOPRAZOLE 40 MG VIAL IV SCH ×2 (09:58→21:55)
[2019-01-27] MEDS: ASPIRIN CHEW 81 MG TABLET PO SCH (09:58)
[2019-01-27] MEDS: WHEAT DEXTRIN POWDER 244 GM BOTTLE PEG SCH ×2 (09:58→21:55)
[2019-01-27] MEDS: ENOXAPARIN 30 MG/0.3 ML SYRINGE SUBCUT SCH (12:19)
[2019-01-28] MEDS: POTASSIUM CHLORIDE IV SCH ×2 (05:19→13:23)
[2019-01-28] MEDS: [UNRECOGNIZED DRUG - OTHER] IV SCH ×2 (05:19→13:23)
[2019-01-28] MEDS: MAGNESIUM SULF IV SCH ×2 (05:19→13:23)
[2019-01-28] MEDS: LEVOTHYROXINE 100 MCG TABLET PO SCH (05:22)
[2019-01-28 06:00] LABS: Basophils % 0.4 % (0.0-0.8); Eosinophils # 0.3 10*3/uL (0.0-0.87); Eosinophils % 2.8 % (0.00-10.9); Hematocrit 28.7 VOL% (42.0-52.0); Hemoglobin 9.4 GM/DL (14.0-18.0); Immature Granulocytes % 0.3 %; Immature Granulocytes Absolute 0.03 #; Lymphocytes # 2.6 10*3/uL (1.4-4.0); Lymphocytes % 27.6 % (21.2-54.2); Mean Corpuscular HGB Conc 32.8 GM/DL (32-36); Mean Corpuscular Volume 96.6 FL (87-102); Mean Platelet Volume 11.1 FL (9.6-12.0); Monocytes % 10.7 % (1.7-12.7); Neutrophils % 58.2 % (38.7-73.9); Platelet Count 279 T/CUMM (130-400); Red Blood Count 2.97 MC/CUMM (3.8-5.5); White Blood Count 9.4 T/CUMM (4-12)
[2019-01-28] MEDS: PANTOPRAZOLE 40 MG VIAL IV SCH (09:34)
[2019-01-28] MEDS: ASPIRIN CHEW 81 MG TABLET PO SCH (09:42)
[2019-01-28] MEDS: WHEAT DEXTRIN POWDER 244 GM BOTTLE PEG SCH (09:42)
[2019-01-28 11:50] VITALS: BP 124/67
[2019-01-28] MEDS: ENOXAPARIN 30 MG/0.3 ML SYRINGE SUBCUT SCH (13:23)
== END 2019-01-28 15:05 | disposition hospice, home (50) | DRG 683 ==
LOC: EDBD → EDUNIT# → N.ED 14:43 → SUATTDRO 18:12 → N.EDINP 18:12 → N.5E 19:15
PROVIDERS: ADMIT Family Medicine; ATTEND Internal Medicine

== ENCOUNTER 2019-09-29 19:14 | Inpatient (IN) ==
[2019-09-29] MEDS ORDERED: SODIUM CHLORIDE 0.9% 1,000 ML IV STA (20:14)
[2019-09-29] MEDS ORDERED: ONDANSETRON 4 MG/2 ML VIAL IV STA (20:14)
[2019-09-29 20:27] LABS: Basophils # 0.1 10*3/uL (0.0-0.2); Basophils % 0.5 % (0.0-0.8); Eosinophils # 0.1 10*3/uL (0.0-0.87); Eosinophils % 0.8 % (0.00-10.9); Hematocrit 36.4 VOL% (42.0-52.0); Hemoglobin 12.6 GM/DL (14.0-18.0); Immature Granulocytes % 0.5 %; Immature Granulocytes Absolute 0.08 #; Lymphocytes # 3.6 10*3/uL (1.4-4.0); Lymphocytes % 24.2 % (21.2-54.2); Mean Corpuscular HGB Conc 34.6 GM/DL (32-36); Mean Corpuscular Volume 94.3 FL (87-102); Mean Platelet Volume 10.9 FL (9.6-12.0); Monocytes % 8.9 % (1.7-12.7); Neutrophils % 65.1 % (38.7-73.9); Platelet Count 330 T/CUMM (130-400); Red Blood Count 3.86 MC/CUMM (3.8-5.5); Red Cell Distribution Width 11.8 % (9.3-17.3); White Blood Count 14.9 T/CUMM (4-12)
[2019-09-29 20:56] LABS: Alanine Aminotransferase 35 U/L (16-61); Albumin 4.1 G/DL (3.4-5.0); Alkaline Phosphatase 65 U/L (45-117); Amylase 115 U/L (25-115); Aspartate Amino Transferase 13 U/L (0-37); Blood Urea Nitrogen 87 MG/DL (7-18); Calcium 8.3 MG/DL (8.5-10.1); Estimated Glom Filtration Rate 6 ML/MIN; Ferritin 429.8 ng/ml (26-388); Glucose 105 MG/DL (74-106); Osmolality,Calculated 281.2 MOS/KG (273-304); Total Protein 8.9 G/DL (6.4-8.3); Troponin I < 0.015 NG/ML (0.00-0.045)
[2019-09-29] MEDS ORDERED: MAGNESIUM SULF RIDER 2 GM in PREMIX 1 EACH IV STA (21:02)
[2019-09-29] MEDS ORDERED: cefTRIAXone 1,000 MG in SODIUM CHLORIDE 0.9% 100 ML IV STA (21:02)
[2019-09-29] MEDS ORDERED: DEXTROSE 50% 25 GM/50 ML VIAL IV PRN (21:57)
[2019-09-29] MEDS ORDERED: GLUCAGON 1 MG VIAL IM PRN (21:57)
[2019-09-29] MEDS ORDERED: ACETAMINOPHEN 325 MG TABLET PO PRN (21:57)
[2019-09-29] MEDS ORDERED: SODIUM CHLORIDE 0.9% 1,000 ML IV SCH (22:00)
[2019-09-29] MEDS: SODIUM CHLORIDE 0.9% 1,000 ML IV SCH (22:05)
[2019-09-29] MEDS: ENOXAPARIN 30 MG/0.3 ML SYRINGE SUBCUT SCH (23:01)
[2019-09-29 23:37] LABS: Apearance,Urine CLEAR (Clear); Bacteria,Urine Occasional /HPF (Few); Bilirubin,Urine Negative (Negative); Blood, Urine Negative (Negative); Glucose,Urine (UA) Negative (Negative); Hyaline Casts,Urine 4 /LPF (0-3); Ketones,Urine Negative (Negative); Mucus,Urine Occasional /LPF (Occasional); Nitrite,Urine Negative (Negative); Protein,Urine Negative; RBC,Urine 1 /HPF (0-4); Squamous Epithelial Cell,Urine Occasional /HPF (0-10); Urine Color Yellow (Yellow); Urine Specific Gravity 1.017 (1.001-1.035); Urine Urobilinogen < 2.0 EU/DL (0.2-1.0); WBC,Urine 2 /HPF (0-6)
[2019-09-30 05:39] LABS: Basophils # 0.1 10*3/uL (0.0-0.2); Basophils % 0.4 % (0.0-0.8); Eosinophils # 0.2 10*3/uL (0.0-0.87); Hematocrit 30.6 VOL% (42.0-52.0); Hemoglobin 10.5 GM/DL (14.0-18.0); Immature Granulocytes % 0.6 %; Immature Granulocytes Absolute 0.09 #; Lymphocytes # 3.5 10*3/uL (1.4-4.0); Mean Corpuscular HGB Conc 34.3 GM/DL (32-36); Mean Corpuscular Volume 95.9 FL (87-102); Mean Platelet Volume 11.7 FL (9.6-12.0); Monocytes % 9.2 % (1.7-12.7); Neutrophils % 65.8 % (38.7-73.9); Platelet Count 288 T/CUMM (130-400); Red Blood Count 3.19 MC/CUMM (3.8-5.5); White Blood Count 15.1 T/CUMM (4-12)
[2019-09-30] MEDS: SODIUM CHLORIDE 0.9% 1,000 ML IV SCH ×2 (06:38→13:22)
[2019-09-30] MEDS ORDERED: LEVOTHYROXINE 100 MCG TABLET PO SCH (07:00)
[2019-09-30 07:43] LABS: Calcium 7.7 MG/DL (8.5-10.1); Osmolality,Calculated 291.4 MOS/KG (273-304)
[2019-09-30] MEDS ORDERED: METOPROLOL SUCCINATE XL 25 MG TABLET PO SCH (09:00)
[2019-09-30] MEDS ORDERED: PANTOPRAZOLE 40 MG TABLET PO SCH (09:00)
[2019-09-30] MEDS: ENOXAPARIN 30 MG/0.3 ML SYRINGE SUBCUT SCH (09:35)
[2019-09-30] MEDS: OMEPRAZOLE ODT 20 MG TABLET PEG SCH (09:50)
[2019-09-30] MEDS: ASPIRIN CHEW 81 MG TABLET PO SCH (09:50)
[2019-09-30] MEDS: TAMSULOSIN 0.4 MG CAPSULE PO SCH (09:50)
[2019-09-30] MEDS: SODIUM BICARBONATE 650 MG TABLET PO SCH ×2 (09:50→20:46)
[2019-09-30] MEDS: HEPARIN 5,000 UNIT/1 ML VIAL SUBCUT SCH (17:15)
[2019-09-30] MEDS: SODIUM BICARB INJ 50 MEQ in DEXTROSE 5% NACL 0.22% 1,000 ML IV SCH (17:15)
[2019-09-30] MEDS: MONTELUKAST 10 MG TABLET PO SCH (20:46)
[2019-09-30] MEDS: cefTRIAXone 2,000 MG in SYRINGE 1 EACH IV SCH (22:04)
[2019-10-01] MEDS: HEPARIN 5,000 UNIT/1 ML VIAL SUBCUT SCH ×3 (00:58→17:34)
[2019-10-01] MEDS: SODIUM BICARB INJ 50 MEQ in DEXTROSE 5% NACL 0.22% 1,000 ML IV SCH ×3 (03:45→23:30)
[2019-10-01 05:31] LABS: Basophils # 0.1 10*3/uL (0.0-0.2); Basophils % 0.7 % (0.0-0.8); Eosinophils # 0.3 10*3/uL (0.0-0.87); Eosinophils % 2.9 % (0.00-10.9); Hematocrit 26.9 VOL% (42.0-52.0); Hemoglobin 9.1 GM/DL (14.0-18.0); Immature Granulocytes % 0.4 %; Immature Granulocytes Absolute 0.04 #; Lymphocytes # 2.4 10*3/uL (1.4-4.0); Mean Corpuscular HGB Conc 33.8 GM/DL (32-36); Mean Corpuscular Volume 95.1 FL (87-102); Mean Platelet Volume 11.4 FL (9.6-12.0); Monocytes % 9.4 % (1.7-12.7); Neutrophils % 60.6 % (38.7-73.9); Platelet Count 180 T/CUMM (130-400); Red Blood Count 2.83 MC/CUMM (3.8-5.5); Red Cell Distribution Width 11.7 % (9.3-17.3); White Blood Count 9.2 T/CUMM (4-12)
[2019-10-01 06:16] LABS: Alanine Aminotransferase 20 U/L (16-61); Alkaline Phosphatase 42 U/L (45-117); Aspartate Amino Transferase 25 U/L (0-37); Blood Urea Nitrogen 76 MG/DL (7-18); Calcium 7.8 MG/DL (8.5-10.1); Estimated Glom Filtration Rate 8 ML/MIN; Ferritin 309.9 ng/ml (26-388); Glucose 95 MG/DL (74-106); Osmolality,Calculated 286.5 MOS/KG (273-304); Total Protein 6.3 G/DL (6.4-8.3)
[2019-10-01 06:44] LABS: Prealbumin 30.8 MG/DL (20-40)
[2019-10-01 07:58] LABS: Sedimentation Rate-Westergren 60 MM/HR (0-20)
[2019-10-01] MEDS: OMEPRAZOLE ODT 20 MG TABLET PEG SCH (09:03)
[2019-10-01] MEDS: TAMSULOSIN 0.4 MG CAPSULE PO SCH (09:03)
[2019-10-01] MEDS: SODIUM BICARBONATE 650 MG TABLET PO SCH ×2 (09:03→21:06)
[2019-10-01] MEDS: CITALOPRAM 20 MG TABLET PO SCH (09:04)
[2019-10-01] MEDS: METOPROLOL TARTRATE 25 MG TABLET PO SCH (09:06)
[2019-10-01] MEDS: LEVOTHYROXINE 100 MCG TABLET PO SCH (09:07)
[2019-10-01] MEDS: ASPIRIN CHEW 81 MG TABLET PO SCH (09:07)
[2019-10-01] MEDS: MONTELUKAST 10 MG TABLET PO SCH (21:06)
[2019-10-01] MEDS: cefTRIAXone 2,000 MG in SYRINGE 1 EACH IV SCH (21:32)
[2019-10-02] MEDS: HEPARIN 5,000 UNIT/1 ML VIAL SUBCUT SCH ×3 (01:27→16:57)
[2019-10-02 06:33] LABS: Basophils # 0.1 10*3/uL (0.0-0.2); Basophils % 0.5 % (0.0-0.8); Eosinophils # 0.2 10*3/uL (0.0-0.87); Eosinophils % 2.1 % (0.00-10.9); Hematocrit 25.8 VOL% (42.0-52.0); Hemoglobin 8.9 GM/DL (14.0-18.0); Immature Granulocytes % 0.6 %; Immature Granulocytes Absolute 0.06 #; Lymphocytes # 2.6 10*3/uL (1.4-4.0); Lymphocytes % 23.9 % (21.2-54.2); Mean Corpuscular HGB Conc 34.5 GM/DL (32-36); Mean Corpuscular Volume 94.2 FL (87-102); Mean Platelet Volume 11.1 FL (9.6-12.0); Monocytes % 10.8 % (1.7-12.7); Neutrophils % 62.1 % (38.7-73.9); Platelet Count 218 T/CUMM (130-400); Red Blood Count 2.74 MC/CUMM (3.8-5.5); Red Cell Distribution Width 11.7 % (9.3-17.3); White Blood Count 10.8 T/CUMM (4-12)
[2019-10-02 06:52] LABS: Albumin 2.9 G/DL (3.4-5.0); Bilirubin,Total 0.7 MG/DL (0.2-1.0); Calcium 7.5 MG/DL (8.5-10.1); Ferritin 322.4 ng/ml (26-388); Osmolality,Calculated 277.8 MOS/KG (273-304); Total Protein 6.4 G/DL (6.4-8.3)
[2019-10-02] MEDS: SODIUM BICARBONATE 650 MG TABLET PO SCH ×3 (08:09→21:29)
[2019-10-02] MEDS: TAMSULOSIN 0.4 MG CAPSULE PO SCH (08:10)
[2019-10-02] MEDS: CITALOPRAM 20 MG TABLET PO SCH (08:10)
[2019-10-02] MEDS: ASPIRIN CHEW 81 MG TABLET PO SCH (08:10)
[2019-10-02] MEDS: METOPROLOL TARTRATE 25 MG TABLET PO SCH (08:10)
[2019-10-02] MEDS: OMEPRAZOLE ODT 20 MG TABLET PEG SCH (08:10)
[2019-10-02] MEDS: LEVOTHYROXINE 100 MCG TABLET PO SCH (08:10)
[2019-10-02 08:30] LABS: Sedimentation Rate-Westergren 69 MM/HR (0-20)
[2019-10-02] MEDS: SODIUM BICARB INJ 100 MEQ in DEXTROSE 5% NACL 0.22% 1,000 ML IV SCH (11:17)
[2019-10-02] MEDS ORDERED: POTASSIUM CHLORIDE 20 MEQ TABLET PO ONE ×2 (17:33→21:00)
[2019-10-02] MEDS: MONTELUKAST 10 MG TABLET PO SCH (21:29)
[2019-10-03] MEDS: SODIUM BICARB INJ 100 MEQ in DEXTROSE 5% NACL 0.22% 1,000 ML IV SCH ×3 (00:18→21:57)
[2019-10-03] MEDS: HEPARIN 5,000 UNIT/1 ML VIAL SUBCUT SCH ×3 (00:18→16:26)
[2019-10-03 06:05] LABS: Basophils % 0.3 % (0.0-0.8); Eosinophils # 0.2 10*3/uL (0.0-0.87); Eosinophils % 1.9 % (0.00-10.9); Hematocrit 26.6 VOL% (42.0-52.0); Hemoglobin 9.1 GM/DL (14.0-18.0); Immature Granulocytes % 0.5 %; Immature Granulocytes Absolute 0.05 #; Lymphocytes # 2.4 10*3/uL (1.4-4.0); Lymphocytes % 22.8 % (21.2-54.2); Mean Corpuscular HGB Conc 34.2 GM/DL (32-36); Mean Corpuscular Volume 94.7 FL (87-102); Mean Platelet Volume 11.5 FL (9.6-12.0); Neutrophils % 63.5 % (38.7-73.9); Platelet Count 235 T/CUMM (130-400); Red Blood Count 2.81 MC/CUMM (3.8-5.5); Red Cell Distribution Width 11.8 % (9.3-17.3); White Blood Count 10.4 T/CUMM (4-12)
[2019-10-03 06:33] LABS: Calcium 7.5 MG/DL (8.5-10.1); Osmolality,Calculated 289.1 MOS/KG (273-304)
[2019-10-03 06:42] LABS: Alanine Aminotransferase 17 U/L (16-61); Albumin 2.9 G/DL (3.4-5.0); Alkaline Phosphatase 45 U/L (45-117); Aspartate Amino Transferase 8 U/L (0-37); Bilirubin,Total < 0.39 MG/DL (0.2-1.0); Blood Urea Nitrogen 60 MG/DL (7-18); Calcium 7.5 MG/DL (8.5-10.1); Estimated Glom Filtration Rate 10 ML/MIN; Ferritin 323.7 ng/ml (26-388); Glucose 128 MG/DL (74-106); Osmolality,Calculated 288.1 MOS/KG (273-304); Total Protein 6.7 G/DL (6.4-8.3)
[2019-10-03 06:44] LABS: Free T4 (Free Thyroxine) 1.07 NG/DL (0.76-1.46); Thyroid Stimulating Hormone 0.611 uIU/ml (0.358-3.74)
[2019-10-03 07:49] LABS: Sedimentation Rate-Westergren 57 MM/HR (0-20)
[2019-10-03] MEDS: TAMSULOSIN 0.4 MG CAPSULE PO SCH (08:52)
[2019-10-03] MEDS: ASPIRIN CHEW 81 MG TABLET PO SCH (08:52)
[2019-10-03] MEDS: LEVOTHYROXINE 100 MCG TABLET PO SCH (08:52)
[2019-10-03] MEDS: OMEPRAZOLE ODT 20 MG TABLET PEG SCH (08:52)
[2019-10-03] MEDS: CITALOPRAM 20 MG TABLET PO SCH (08:52)
[2019-10-03] MEDS: SODIUM BICARBONATE 650 MG TABLET PO SCH ×2 (08:52→20:54)
[2019-10-03] MEDS: METOPROLOL TARTRATE 25 MG TABLET PO SCH (08:52)
[2019-10-03] MEDS: MONTELUKAST 10 MG TABLET PO SCH (20:54)
[2019-10-04] MEDS: HEPARIN 5,000 UNIT/1 ML VIAL SUBCUT SCH ×3 (01:07→16:12)
[2019-10-04 04:53] LABS: Basophils % 0.3 % (0.0-0.8); Eosinophils # 0.1 10*3/uL (0.0-0.87); Eosinophils % 1.3 % (0.00-10.9); Hematocrit 26.8 VOL% (42.0-52.0); Immature Granulocytes % 0.4 %; Immature Granulocytes Absolute 0.04 #; Lymphocytes % 19.2 % (21.2-54.2); Mean Corpuscular HGB Conc 33.6 GM/DL (32-36); Mean Corpuscular Volume 96.8 FL (87-102); Mean Platelet Volume 11.3 FL (9.6-12.0); Monocytes % 13.6 % (1.7-12.7); Neutrophils % 65.2 % (38.7-73.9); Platelet Count 227 T/CUMM (130-400); Red Blood Count 2.77 MC/CUMM (3.8-5.5); Red Cell Distribution Width 11.7 % (9.3-17.3); White Blood Count 10.4 T/CUMM (4-12)
[2019-10-04 06:04] LABS: Alanine Aminotransferase 14 U/L (16-61); Albumin 2.6 G/DL (3.4-5.0); Alkaline Phosphatase 39 U/L (45-117); Aspartate Amino Transferase 11 U/L (0-37); Bilirubin,Total < 0.39 MG/DL (0.2-1.0); Blood Urea Nitrogen 52 MG/DL (7-18); Calcium 7.3 MG/DL (8.5-10.1); Estimated Glom Filtration Rate 12 ML/MIN; Ferritin 293.8 ng/ml (26-388); Glucose 115 MG/DL (74-106); Osmolality,Calculated 287.8 MOS/KG (273-304); Total Protein 6.5 G/DL (6.4-8.3)
[2019-10-04 06:05] LABS: Sedimentation Rate-Westergren 84 MM/HR (0-20)
[2019-10-04 06:17] LABS: Calcium 7.2 MG/DL (8.5-10.1); Osmolality,Calculated 288.7 MOS/KG (273-304)
[2019-10-04] MEDS: ONDANSETRON 4 MG/2 ML VIAL IV PRN (08:01)
[2019-10-04] MEDS: TAMSULOSIN 0.4 MG CAPSULE PO SCH ×2 (09:49→13:48)
[2019-10-04] MEDS: SODIUM BICARBONATE 650 MG TABLET PO SCH ×3 (09:49→20:53)
[2019-10-04] MEDS: METOPROLOL TARTRATE 25 MG TABLET PO SCH ×2 (09:49→13:47)
[2019-10-04] MEDS: OMEPRAZOLE ODT 20 MG TABLET PEG SCH ×2 (09:49→13:47)
[2019-10-04] MEDS: LEVOTHYROXINE 100 MCG TABLET PO SCH ×2 (09:49→13:47)
[2019-10-04] MEDS: ASPIRIN CHEW 81 MG TABLET PO SCH ×2 (09:49→13:47)
[2019-10-04] MEDS: CITALOPRAM 20 MG TABLET PO SCH ×2 (09:49→13:48)
[2019-10-04] MEDS: SODIUM BICARB INJ 100 MEQ in DEXTROSE 5% NACL 0.22% 1,000 ML IV SCH ×2 (09:54→20:54)
[2019-10-04] MEDS: MONTELUKAST 10 MG TABLET PO SCH (20:53)
[2019-10-05] MEDS: HEPARIN 5,000 UNIT/1 ML VIAL SUBCUT SCH ×3 (01:47→16:49)
[2019-10-05 06:10] LABS: Basophils % 0.4 % (0.0-0.8); Eosinophils # 0.1 10*3/uL (0.0-0.87); Eosinophils % 1.9 % (0.00-10.9); Hematocrit 24.2 VOL% (42.0-52.0); Hemoglobin 8.1 GM/DL (14.0-18.0); Immature Granulocytes % 0.4 %; Immature Granulocytes Absolute 0.03 #; Lymphocytes # 1.9 10*3/uL (1.4-4.0); Lymphocytes % 27.9 % (21.2-54.2); Mean Corpuscular HGB Conc 33.5 GM/DL (32-36); Mean Corpuscular Volume 96.8 FL (87-102); Monocytes % 17.1 % (1.7-12.7); Neutrophils % 52.3 % (38.7-73.9); Platelet Count 209 T/CUMM (130-400); Red Cell Distribution Width 11.7 % (9.3-17.3); White Blood Count 6.8 T/CUMM (4-12)
[2019-10-05 06:18] LABS: Albumin 2.5 G/DL (3.4-5.0); Bilirubin,Total 0.6 MG/DL (0.2-1.0); Calcium 7.2 MG/DL (8.5-10.1); Osmolality,Calculated 284.8 MOS/KG (273-304); Prealbumin 18.7 MG/DL (20-40); Total Protein 6.3 G/DL (6.4-8.3)
[2019-10-05 06:32] LABS: Lymphocytes 25 % (20-55); Segmented Neutrophils 60 % (50-85); Total Cells Counted 100
[2019-10-05 06:33] LABS: Hypochromasia 1+; Microcytosis 1+; Platelet Estimate Adequate
[2019-10-05 07:31] LABS: Sedimentation Rate-Westergren 105 MM/HR (0-20)
[2019-10-05] MEDS: SODIUM BICARB INJ 100 MEQ in DEXTROSE 5% NACL 0.22% 1,000 ML IV SCH (08:51)
[2019-10-05] MEDS: METOPROLOL TARTRATE 25 MG TABLET PO SCH (09:24)
[2019-10-05] MEDS: LEVOTHYROXINE 100 MCG TABLET PO SCH (09:24)
[2019-10-05] MEDS: OMEPRAZOLE ODT 20 MG TABLET PEG SCH (09:24)
[2019-10-05] MEDS: SODIUM BICARBONATE 650 MG TABLET PO SCH ×2 (09:25→21:06)
[2019-10-05] MEDS: CITALOPRAM 20 MG TABLET PO SCH (09:25)
[2019-10-05] MEDS: ASPIRIN CHEW 81 MG TABLET PO SCH (09:25)
[2019-10-05] MEDS: TAMSULOSIN 0.4 MG CAPSULE PO SCH (09:26)
[2019-10-05] MEDS: DEXTROSE 5% NACL 0.9% 1,000 ML IV SCH (11:21)
[2019-10-05] MEDS ORDERED: MAGNESIUM SULF RIDER 2 GM in PREMIX 1 EACH IV PRN (16:20)
[2019-10-05] MEDS ORDERED: MAGNESIUM SULF RIDER 4 GM in PREMIX 1 EACH IV PRN (16:20)
[2019-10-05] MEDS: ONDANSETRON 4 MG/2 ML VIAL IV PRN ×2 (17:16→21:09)
[2019-10-05] MEDS: MONTELUKAST 10 MG TABLET PO SCH (21:06)
[2019-10-06] MEDS: HEPARIN 5,000 UNIT/1 ML VIAL SUBCUT SCH ×2 (00:26→09:25)
[2019-10-06] MEDS: DEXTROSE 5% NACL 0.9% 1,000 ML IV SCH (03:17)
[2019-10-06 06:00] LABS: Calcium 7.6 MG/DL (8.5-10.1); Osmolality,Calculated 280.1 MOS/KG (273-304)
[2019-10-06] MEDS: OMEPRAZOLE ODT 20 MG TABLET PEG SCH (09:25)
[2019-10-06] MEDS: LEVOTHYROXINE 100 MCG TABLET PO SCH (09:25)
[2019-10-06] MEDS: TAMSULOSIN 0.4 MG CAPSULE PO SCH (09:25)
[2019-10-06] MEDS: SODIUM BICARBONATE 650 MG TABLET PO SCH (09:25)
[2019-10-06] MEDS: CITALOPRAM 20 MG TABLET PO SCH (09:25)
[2019-10-06] MEDS: ASPIRIN CHEW 81 MG TABLET PO SCH (09:47)
[2019-10-06] MEDS: METOPROLOL TARTRATE 25 MG TABLET PO SCH (09:49)
[2019-10-06 09:52] VITALS: BP 98/52
[2019-10-09 20:11] LABS: Specimen Source NOSE
== END 2019-10-06 12:01 | disposition home health service (06) | DRG 872 ==
LOC: N.ED 19:14 → N.EDINP 21:57 → SUATTDRO 21:57 → N.2E 09-30 12:35 → N.4E 10-02 11:08
PROVIDERS: ADMIT Hospitalist; ATTEND Family Medicine

== ENCOUNTER 2019-10-20 14:32 | Inpatient (IN) ==
[2019-10-20 15:54] LABS: Calcium 9.9 MG/DL (8.5-10.1); Osmolality,Calculated 288.1 MOS/KG (273-304)
[2019-10-20] MEDS ORDERED: SODIUM CHLORIDE 0.9% 500 ML IV STA (16:05)
[2019-10-20] MEDS ORDERED: SODIUM CHLORIDE 0.9% 1,000 ML IV STA (16:07)
[2019-10-20] MEDS ORDERED: GLUCAGON 1 MG VIAL IM PRN (16:32)
[2019-10-20] MEDS ORDERED: ACETAMINOPHEN 325 MG TABLET PO PRN (16:32)
[2019-10-20] MEDS ORDERED: DEXTROSE 50% 25 GM/50 ML VIAL IV PRN (16:32)
[2019-10-20] MEDS ORDERED: clonazePAM 0.5 MG TABLET PO PRN (16:36)
[2019-10-20] MEDS ORDERED: PROMETHAZINE 25 MG TABLET PO PRN (16:36)
[2019-10-20] MEDS ORDERED: NITROGLYCERIN SL 0.4 MG TABLET SL PRN (16:36)
[2019-10-20] MEDS ORDERED: INSULIN REGULAR 10 UNIT, CALCIUM GLUCONATE 1,000 MG in DEXTROSE 10% 250 ML IV ONE (17:00)
[2019-10-20] MEDS ORDERED: MAGNESIUM SULF RIDER 1 GM in PREMIX 1 EACH IV ONE (17:38)
[2019-10-20 17:51] LABS: Basophils # 0.1 10*3/uL (0.0-0.2); Basophils % 0.6 % (0.0-0.8); Eosinophils # 0.1 10*3/uL (0.0-0.87); Eosinophils % 1.3 % (0.00-10.9); Hematocrit 36.9 VOL% (42.0-52.0); Hemoglobin 12.2 GM/DL (14.0-18.0); Immature Granulocytes % 0.6 %; Immature Granulocytes Absolute 0.05 #; Lymphocytes # 2.5 10*3/uL (1.4-4.0); Lymphocytes % 29.5 % (21.2-54.2); Mean Corpuscular HGB Conc 33.1 GM/DL (32-36); Mean Corpuscular Volume 97.1 FL (87-102); Mean Platelet Volume 11.7 FL (9.6-12.0); Monocytes % 8.7 % (1.7-12.7); Neutrophils % 59.3 % (38.7-73.9); Platelet Count 397 T/CUMM (130-400); Red Cell Distribution Width 11.7 % (9.3-17.3); White Blood Count 8.5 T/CUMM (4-12)
[2019-10-21] MEDS: METOPROLOL TARTRATE 25 MG TABLET PO SCH ×3 (00:21→20:33)
[2019-10-21] MEDS ORDERED: INSULIN REGULAR 10 UNIT, CALCIUM GLUCONATE 1,000 MG in DEXTROSE 10% 250 ML IV ONE (00:30)
[2019-10-21] MEDS: SODIUM CHLORIDE 0.9% 1,000 ML IV SCH ×2 (02:28→12:42)
[2019-10-21] MEDS: LEVOTHYROXINE 100 MCG TABLET PO SCH (06:45)
[2019-10-21 07:53] LABS: Basophils # 0.1 10*3/uL (0.0-0.2); Basophils % 0.7 % (0.0-0.8); Eosinophils # 0.2 10*3/uL (0.0-0.87); Eosinophils % 1.4 % (0.00-10.9); Hematocrit 32.8 VOL% (42.0-52.0); Hemoglobin 11.1 GM/DL (14.0-18.0); Immature Granulocytes % 0.3 %; Immature Granulocytes Absolute 0.03 #; Lymphocytes # 2.7 10*3/uL (1.4-4.0); Lymphocytes % 26.4 % (21.2-54.2); Mean Corpuscular HGB Conc 33.8 GM/DL (32-36); Mean Corpuscular Volume 95.9 FL (87-102); Mean Platelet Volume 11.3 FL (9.6-12.0); Monocytes % 7.7 % (1.7-12.7); Neutrophils % 63.5 % (38.7-73.9); Platelet Count 323 T/CUMM (130-400); Red Blood Count 3.42 MC/CUMM (3.8-5.5); Red Cell Distribution Width 11.5 % (9.3-17.3); White Blood Count 10.4 T/CUMM (4-12)
[2019-10-21 08:15] LABS: Albumin 3.6 G/DL (3.4-5.0); Bilirubin,Total 0.4 MG/DL (0.2-1.0); Calcium 9.8 MG/DL (8.5-10.1); Osmolality,Calculated 284.9 MOS/KG (273-304); Total Protein 8.1 G/DL (6.4-8.3)
[2019-10-21] MEDS: CITALOPRAM 20 MG TABLET PO SCH (09:23)
[2019-10-21] MEDS: PANTOPRAZOLE 40 MG TABLET PO SCH (09:23)
[2019-10-21] MEDS: ENOXAPARIN 30 MG/0.3 ML SYRINGE SUBCUT SCH (09:23)
[2019-10-21] MEDS ORDERED: MAGNESIUM SULF RIDER 50 ML IV ONE (09:32)
[2019-10-21] MEDS: SODIUM BICARB INJ 100 MEQ in SODIUM CHLORIDE 0.45% 1,000 ML IV SCH ×2 (13:12→20:34)
[2019-10-22] MEDS: LEVOTHYROXINE 100 MCG TABLET PO SCH (05:32)
[2019-10-22] MEDS: SODIUM BICARB INJ 100 MEQ in SODIUM CHLORIDE 0.45% 1,000 ML IV SCH (05:38)
[2019-10-22 06:05] LABS: Prealbumin 37.5 MG/DL (20-40)
[2019-10-22 08:28] LABS: Basophils # 0.1 10*3/uL (0.0-0.2); Basophils % 0.7 % (0.0-0.8); Eosinophils # 0.1 10*3/uL (0.0-0.87); Eosinophils % 1.6 % (0.00-10.9); Hematocrit 25.7 VOL% (42.0-52.0); Immature Granulocytes % 0.3 %; Immature Granulocytes Absolute 0.03 #; Lymphocytes % 33.7 % (21.2-54.2); Mean Corpuscular HGB Conc 34.6 GM/DL (32-36); Mean Corpuscular Volume 93.8 FL (87-102); Mean Platelet Volume 10.9 FL (9.6-12.0); Monocytes % 9.1 % (1.7-12.7); Neutrophils % 54.6 % (38.7-73.9); Platelet Count 270 T/CUMM (130-400); Red Blood Count 2.74 MC/CUMM (3.8-5.5); Red Cell Distribution Width 11.6 % (9.3-17.3)
[2019-10-22 08:29] LABS: Hemoglobin 8.9 GM/DL (14.0-18.0)
[2019-10-22 08:38] LABS: Calcium 8.6 MG/DL (8.5-10.1); Osmolality,Calculated 290.5 MOS/KG (273-304)
[2019-10-22] MEDS: CITALOPRAM 20 MG TABLET PO SCH (08:45)
[2019-10-22] MEDS: ENOXAPARIN 30 MG/0.3 ML SYRINGE SUBCUT SCH (08:45)
[2019-10-22] MEDS: METOPROLOL TARTRATE 25 MG TABLET PO SCH (08:45)
[2019-10-22] MEDS: PANTOPRAZOLE 40 MG TABLET PO SCH (08:45)
[2019-10-22 11:59] VITALS: BP 103/59
== END 2019-10-22 13:42 | disposition home health service (06) | DRG 683 ==
LOC: N.ED 14:32 → N.EDINP 16:32 → N.TELEN 18:24
PROVIDERS: ADMIT Family Medicine; ATTEND Family Medicine